=== PATIENT | female | born 1965 | race Caucasian/White ===

== ENCOUNTER 2018-10-12 04:16 | Inpatient (IN) ==
--- NOTE | 2018-10-05 09:46 | EKG Report ---
Test Performed on : 10/05/2018 09:31:10 AM Test Reason : PAT Blood Pressure : / mmHG Vent. Rate : 091 BPM Atrial Rate : 091 BPM P-R Int : 188 ms QRS Dur : 088 ms QT Int : 400 ms P-R-T Axes : 066 080 072 degrees QTc Int : 492 ms Normal sinus rhythm. Prolonged QT Abnormal ECG When compared with ECG of 22-MAR-2013 09:17, No significant change was found Confirmed by Luisana Cheney MD ([id number]) on 10/06/2018 12:59:48 PM
[2018-10-05 10:07] LABS: HEMATOCRIT 39.3 % (37.0-47.0); HEMOGLOBIN 13.6 g/dL (12.0-16.0); MCH 30.5 PG (27-31); MCHC 34.6 g/dL (33-37); MCV 88.1 FL (81-99); RBC 4.46 XMIL (4.2-5.4); RDW 13.1 % (11.5-14.5); WBC 5.02 X1000 (4.8-10.8)
[2018-10-05 11:02] LABS: AGAP 11; BUN 11 mg/dL (8-22); CALCIUM 9.5 mg/dL (8.8-10.2); CHLORIDE 104 mmol/L (98-107); COSMO 290; CREATININE 0.7 mg/dL (0.5-0.9); ESTIMATED GFR > 60; GLUCOSE 233 mg/dL (70-104); SODIUM 142 mmol/L (136-145); TCO2 27 mmol/L (25-35)
[2018-10-12] MEDS ORDERED: KEFZOL 1 GM/D5W 2 GM/100 ML IVPB ONE (05:41)
[2018-10-12] MEDS ORDERED: LR 1,000 ML ONE (05:41)
[2018-10-12] MEDS ORDERED: HURRICAINE SPRAY (DOSE) ONE (06:04)
[2018-10-12] MEDS ORDERED: STERILE WATER INJ. ONE ×2 (06:25→08:12)
[2018-10-12] MEDS ORDERED: QUELICIN (DOSE) ONE (06:25)
[2018-10-12] MEDS ORDERED: NORCURON ONE ×2 (06:25→08:12)
[2018-10-12] MEDS ORDERED: ROBINUL ONE (06:25)
[2018-10-12] MEDS ORDERED: XYLOCAINE-MPF 2% ONE (06:25)
[2018-10-12] MEDS ORDERED: SODIUM CHLORIDE 0.9% 20 ML ONE (06:25)
[2018-10-12] MEDS ORDERED: NEO-SYNEPHRINE ONE ×2 (06:25→10:52)
[2018-10-12] MEDS ORDERED: DIPRIVAN 1% ONE (06:26)
[2018-10-12] MEDS ORDERED: FENTANYL ONE (06:26)
[2018-10-12] MEDS ORDERED: NS 1,000 ML ONE ×3 (06:35→12:54)
[2018-10-12] MEDS ORDERED: KEFZOL ONE (06:35)
[2018-10-12] MEDS ORDERED: HEPARIN ONE (06:35)
[2018-10-12] MEDS ORDERED: PEPCID ONE (06:42)
[2018-10-12] MEDS ORDERED: TRANSDERM-SCOP ONE (06:42)
[2018-10-12] MEDS ORDERED: REGLAN ONE (06:42)
[2018-10-12] MEDS ORDERED: NITROGLYCERIN 50 MG/D5W 0 MG/0 ML IV.SOLN ONE (06:46)
[2018-10-12] MEDS ORDERED: VERSED ONE (06:48)
[2018-10-12] MEDS ORDERED: DECADRON ONE (07:44)
[2018-10-12] MEDS ORDERED: ZOFRAN ONE (07:44)
[2018-10-12 07:55] LABS: URINE SOURCE CATH
[2018-10-12 08:03] LABS: BILIRUBIN URINE NEGATIVE (NEGATIVE); BLOOD URINE NEGATIVE (NEGATIVE); COLOR YELLOW; GLUCOSE URINE 100 mg/dL (NEGATIVE); KETONE URINE NEGATIVE (NEGATIVE); LEUKOCYTES URINE NEGATIVE (NEGATIVE); NITRITE URINE NEGATIVE (NEGATIVE); PROTEIN URINE NEGATIVE (NEGATIVE); SP GRAVITY URINE 1.017; TURBIDITY URINE CLEAR (CLEAR); UR EPITHELIAL CELLS <10 /HPF (<10); URINE BACTERIA NEGATIVE /HPF; URINE RBC <10 /HPF (<10); URINE WBC <10 /HPF (<10); UROBILINOGEN URINE NORMAL (NORMAL)
[2018-10-12] MEDS ORDERED: NEOSTIGMINE ONE (08:03)
[2018-10-12] MEDS ORDERED: DILAUDID ONE (08:04)
[2018-10-12] MEDS ORDERED: SODIUM CHLORIDE 0.9% 10 ML ONE (08:05)
[2018-10-12] MEDS ORDERED: PHENERGAN ONE (08:14)
[2018-10-12] MEDS ORDERED: HEPARIN (DOSE) ONE (08:44)
[2018-10-12] MEDS ORDERED: OFIRMEV 1000 MG/ISOTONIC SOLN 1,000 MG/100 ML BOTTLE ONE (08:54)
[2018-10-12 12:52] LABS: HEMATOCRIT 21.5 % (37.0-47.0); HEMOGLOBIN 7.1 g/dL (12.0-16.0); MCH 30.2 PG (27-31); MCV 91.5 FL (81-99); MPV 9.7 FL (7.4-10.4); RBC 2.35 XMIL (4.2-5.4); RDW 13.9 % (11.5-14.5); WBC 11.87 X1000 (4.8-10.8)
--- NOTE | 2018-10-12 13:05 | OPERATIVE NOTE ---
PROCEDURE DATE: 10/12/2018 PROCEDURE: Aortobifemoral bypass using a 16 x 8 mm Hemashield bifurcated graft. SURGEON: Kp Tena MD. VOUCHER EXAMINER: Davey Castro RN and MADINA Ortiz. PREOPERATIVE DIAGNOSIS: Aortic occlusion with bilateral hip claudication. POSTOPERATIVE DIAGNOSIS: Aortic occlusion with bilateral hip claudication. DESCRIPTION OF PROCEDURE: After satisfactory general endotracheal anesthesia was achieved, the abdomen and groins were prepped and draped in a sterile fashion. We began in the left groin, and made a vertical incision, and dissected down to the subcutaneous tissue until we identified the common femoral artery as it came underneath the inguinal ligament. We surrounded it with an umbilical tape. The branches were identified and surrounded with vessel loops. An antibiotic sponge was placed in the left groin. We then did exactly the same procedure on the right groin identifying the common femoral artery as it came out from the inguinal ligament surrounding the branches with vessel loops in the common femoral with an umbilical tape. An antibiotic sponge was placed there as well. We then made a midline incision and carried our incision through the subcutaneous tissue. We achieved satisfactory hemostasis in the small veins inside the subcutaneous fat. We entered the abdominal cavity above the mesh which was noted to be just above the umbilicus. We then carefully dissected through the mesh, and then continued our fascial incision caudad. We took the adhesions from the back of the abdominal wall where the omentum was stuck up to the mesh. We divided those until the omentum was free. We then reflected the small bowel to the right, identified the retroperitoneum, and then opened the retroperitoneum using the electrocautery. Inferior mesenteric vein was ligated and divided. We then exposed the aorta below the renals in a spot where there was a palpable pulse. We then made a subcutaneous retroperitoneal tunnel along the course of the right iliac into the right groin passing an umbilical tape, and then we did the same thing on the left side using a long Shauna clamp passed from the groin up through the retroperitoneum. We stayed close to the vessel in order to be certain we stay behind the ureters. After those were placed, we then gave the patient 9000 units of heparin. We did have an umbilical tape around the aorta. We then placed a side-biting clamp on the aorta and passed it cephalad. We then used a TA 30 vascular staple to staple off the distal aorta. We then transected the aorta. The clot was noted within the aorta, and we removed it until upper aortic cuff was clear of clot. We had obtained a 16 x 8 bifurcated Hemashield collagen impregnated graft. We then used a 3-0 Prolene stitch to sew it to the aorta. Upon completion, we opened the aortic clamp and we did not really have flow so I assumed there was still some clot at the clamp level so we actually made a graftotomy. I passed a long Shauna into the aorta to remove some more of the clot, and evacuated until we did get vigorous flow. We then closed the graftotomy with a 3-0 Prolene stitch. The cuff we had made was used to place over that suture line. We then opened the clamp again. We did have flow down both limbs. It was vigorous, and so we then suctioned out the limbs with the graft suction cannula. We then passed the limbs down to the groins in the retroperitoneum using the previously placed path that we had already made. We then began on the right groin. We clamped off the common femoral, occluded flow in the branch vessels, and made a vertical incision in the common femoral down to the superficial femoral. We then cut the graft to match the arteriotomy and constructed this anastomosis with a 5- 0 Prolene stitch. As we neared completion, we back bled the branch vessels. There was still flow in the common femoral, and then we flushed the right limb of the graft and it was good. We then finished the anastomosis. We then clamped off the left limb and opened the graft, and allowed flow down the right side. We then turned our attention to the left-side. We did a similar anastomosis on the left side. As we neared completion, we opened and flushed the graft. We did not get adequate flow. We then began to try and solve the problem of our left limb was not adequate flow. It became evident that there was just too much redundancy in the left limb so I had to straighten out the left limb. Once we did that and took out some of the redundancy, we had a much better pulse in the left groin. In fact, I had to redo the femoral anastomosis shortening the graft by about 3 cm. This straightened the graft out enough that there was no redundancy then, and we then had good pulsatile flow. We re-did the distal anastomosis in the left femoral where we had made a graftotomy in that limb. We closed it as well with a 5-0 Prolene stitch, and flow was established. A good pulse was noted within the femorals. Both anastomoses were hemostatic. We then irrigated out both groins with Kefzol-impregnated saline. We proceeded to close both groins with 2 layers of 2-0 Polysorb. We then turned our attention to the abdomen once again. We closed the retroperitoneum with a 3-0 Polysorb running. The graft was well covered with the retroperitoneal fat where the bowel was then replaced into the abdominal cavity. It had been placed in a bowel bag during the abdominal portion of the procedure. We returned it to the abdominal cavity. We then proceeded to close the anterior peritoneum with a 2-0 chromic. We closed the anterior fascia with a running #2 Prolene, and irrigated out the subcutaneous tissue. We then closed the abdominal wall with elaine and both groins with elaine as well. Sterile dressings were applied. She tolerated it well. 3200 mL of blood loss. Received 4 units of blood, and was sent to the recovery room in stable condition. cc: Kp Tena MD
[2018-10-12] MEDS ORDERED: NS 1,000 ML IV SCH (14:01)
[2018-10-12 14:23] LABS: AGAP 15; BUN 11 mg/dL (8-22); CALCIUM 7.7 mg/dL (8.8-10.2); CHLORIDE 105 mmol/L (98-107); COSMO 289; CREATININE 0.7 mg/dL (0.5-0.9); ESTIMATED GFR > 60; GLUCOSE 390 mg/dL (70-104); POTASSIUM 4.5 mmol/L (3.5-5.1); SODIUM 137 mmol/L (136-145); TCO2 17 mmol/L (25-35)
[2018-10-12] MEDS: KEFZOL 1 GM in NS 50 ML IV SCH ×2 (14:24→15:02)
[2018-10-12] MEDS ORDERED: NS 250 ML IV PRN (14:34)
[2018-10-12] MEDS: DILAUDID IV PRN ×4 (14:59→22:03)
[2018-10-12] MEDS: ZOFRAN IV PRN ×2 (15:00→22:08)
--- NOTE | 2018-10-12 18:26 | GENERAL SURGERY PROGRESS NOTE ---
DATE: 10/12/2018 SUBJECTIVE: It is 6:10 in the afternoon. Ms. Bay is awake and alert. OBJECTIVE: Her heart rate is 135, blood pressure is 147/85. She has clear breath sounds bilaterally. Abdominal bandage is dry. She has a little oozing from her left groin. Her periphery is cool. ASSESSMENT/PLAN: She is making urine satisfactorily. She has received 5 units of blood. We will give her an additional unit tonight. Her glucose is about in the mid 200s. We will put her on a sliding scale. We will recheck her labs in the morning. I have talked with her family. cc: Kp Tena MD
[2018-10-12 18:28] LABS: ALLEN TEST YES; BE -13.8 mmoll (-3.0-3.0); BLOOD TYPE ARTERIAL; O2(CT) 20.5 mL/dL (15.0-23.0); O2HB 93.5 % (95.0-99.0); PCO2(98.6) 44 mmHg (35-45); PO2(98.6) 76 mmHg (60-100); SAMPLE BLOOD; SAO2 96.9 % (95.0-100.0); THB 15.6 g/dL (11.5-17.4)
[2018-10-12 18:30] LABS: MODALITY CANNULA; pH(98.6) 7.14 (7.35-7.45)
[2018-10-12] MEDS: SODIUM BICARBONATE 8.4% 100 MEQ in D5W 1,000 ML IV SCH (19:43)
[2018-10-12] MEDS ORDERED: HUMULIN R SUBQ SCH ×2 (21:00)
[2018-10-12] MEDS ORDERED: PERIDEX MT SCH (21:00)
[2018-10-12 22:27] LABS: ALLEN TEST YES; BE -9.4 mmoll (-3.0-3.0); BLOOD TYPE ARTERIAL; HCO3-(ACT) 17.5 mmoll (20.0-26.0); METHB 1.2 % (0.0-1.5); O2(CT) 21.7 mL/dL (15.0-23.0); O2HB 95.6 % (95.0-99.0); PCO2(98.6) 50 mmHg (35-45); PO2(98.6) 112 mmHg (60-100); SAMPLE BLOOD; SAO2 99.4 % (95.0-100.0); THB 16.1 g/dL (11.5-17.4)
[2018-10-12 22:28] LABS: MODALITY VENTIMASK
[2018-10-12 22:31] LABS: pH(98.6) 7.19 (7.35-7.45)
[2018-10-13 00:13] LABS: HEMOGLOBIN 15.6 g/dL (12.0-16.0); MCH 30.9 PG (27-31); MCHC 34.7 g/dL (33-37); MCV 89.1 FL (81-99); MPV 10.6 FL (7.4-10.4); RBC 5.05 XMIL (4.2-5.4); RDW 15.1 % (11.5-14.5); WBC 25.07 X1000 (4.8-10.8)
[2018-10-13 00:41] LABS: POTASSIUM 6.5 mmol/L (3.5-5.1)
[2018-10-13] MEDS: KEFZOL 1 GM in NS 50 ML IV SCH (00:42)
[2018-10-13 00:43] LABS: CALCIUM 7.2 mg/dL (8.8-10.2); CREATININE 1.2 mg/dL (0.5-0.9)
[2018-10-13 00:58] LABS: CK INDEX 0.7 (0.0-2.5); CK-MB 40.71 ng/mL (0.0-5.0)
[2018-10-13] MEDS ORDERED: LANTUS INSULIN SUBQ ONE (02:12)
[2018-10-13] MEDS ORDERED: HUMALOG SUBQ ONE (02:14)
[2018-10-13] MEDS: SODIUM BICARBONATE 8.4% 100 MEQ in D5W 1,000 ML IV SCH (02:19)
[2018-10-13 02:43] LABS: BASO# 0.02 X1000 (0.0-0.2); BASO% 0.1 % (0.0-0.8); HEMATOCRIT 44.2 % (37.0-47.0); HEMOGLOBIN 15.4 g/dL (12.0-16.0); IMM GRAN% 0.4 % (0.0-0.5); LYMPH# 1.98 X1000 (1.2-3.4); LYMPH% 7.9 % (20.5-51.1); MCH 30.8 PG (27-31); MCHC 34.8 g/dL (33-37); MCV 88.4 FL (81-99); MONO# 2.55 X1000 (0.11-0.59); MONO% 10.2 % (1.7-9.3); MPV 10.2 FL (7.4-10.4); NEUT# 20.43 X1000 (1.4-6.5); NEUT% 81.4 % (42.2-75.2); PLT 89 X1000 (130-400); WBC 25.08 X1000 (4.8-10.8)
[2018-10-13 03:05] LABS: BANDS 2 % (0-1); LYMPHS 7 % (21-51); MONO 8 % (1-9); SEGS 83 % (42-75)
[2018-10-13 03:10] LABS: CREATININE 1.1 mg/dL (0.5-0.9)
[2018-10-13 03:11] LABS: ALLEN TEST YES; BE -6.7 mmoll (-3.0-3.0); BLOOD TYPE ARTERIAL; HCO3-(ACT) 19.6 mmoll (20.0-26.0); METHB 1.1 % (0.0-1.5); O2(CT) 21.4 mL/dL (15.0-23.0); PCO2(98.6) 49 mmHg (35-45); PO2(98.6) 102 mmHg (60-100); SAMPLE BLOOD; SAO2 99.2 % (95.0-100.0); THB 15.8 g/dL (11.5-17.4); pH(98.6) 7.24 (7.35-7.45)
[2018-10-13 03:12] LABS: MODALITY VENTIMASK
[2018-10-13 03:12] LABS: POTASSIUM 6.6 mmol/L (3.5-5.1)
[2018-10-13 03:13] LABS: CALCIUM 6.5 mg/dL (8.8-10.2)
[2018-10-13] MEDS ORDERED: HUMULIN R IV ONE (03:16)
[2018-10-13] MEDS ORDERED: CALCIUM GLUCONATE 1 GM in NS 50 ML IV ONE ×2 (03:17→07:42)
[2018-10-13] MEDS ORDERED: D50W SYRINGE IV ONE (03:17)
[2018-10-13] MEDS ORDERED: LASIX IV ONE (03:31)
[2018-10-13] MEDS ORDERED: DUONEB (A & A) INH ONE (03:31)
[2018-10-13] MEDS ORDERED: DUONEB (A & A) INH PRN (03:31)
[2018-10-13] MEDS ORDERED: SODIUM BICARBONATE 8.4% 150 MEQ in STERILE WATER INJ. 1,000 ML IV SCH ×2 (04:15→10:30)
[2018-10-13] MEDS ORDERED: VANCOMYCIN IV PER PHARMACY MISC SCH (04:30)
[2018-10-13] MEDS: HUMULIN R SUBQ SCH ×5 (04:51→20:24)
[2018-10-13] MEDS: MERREM 1 GM in NS 50 ML IV SCH ×3 (04:51→22:57)
[2018-10-13] MEDS ORDERED: VANCOMYCIN 2,250 MG in NS 500 ML IV ONE (05:00)
[2018-10-13 06:24] LABS: BASO# 0.01 X1000 (0.0-0.2); BASO% 0.1 % (0.0-0.8); HEMATOCRIT 41.2 % (37.0-47.0); HEMOGLOBIN 14.5 g/dL (12.0-16.0); IMM GRAN# 0.04 X1000 (0.0-0.04); IMM GRAN% 0.3 % (0.0-0.5); LYMPH# 1.47 X1000 (1.2-3.4); LYMPH% 9.8 % (20.5-51.1); MCH 30.6 PG (27-31); MCHC 35.2 g/dL (33-37); MCV 86.9 FL (81-99); MONO# 1.29 X1000 (0.11-0.59); MONO% 8.6 % (1.7-9.3); NEUT% 81.2 % (42.2-75.2); PLT 66 X1000 (130-400); RBC 4.74 XMIL (4.2-5.4); RDW 14.7 % (11.5-14.5); WBC 15.01 X1000 (4.8-10.8)
--- NOTE | 2018-10-13 06:29 | Diag Imaging Result Doc PS360 ---
CT ABD/PELVIS W/IV CONT ONLY - 10/13/2018 INDICATION: s/p abdominal sx COMPARISON: None FINDINGS: There is significant scattered atelectasis in the lower lobes bilaterally. Heart size is normal with no pericardial effusion. There is extremely severe diffuse fatty change of the liver. There are multifocal, small splenic infarctions. Spleen size is normal. There are cholecystectomy clips. No biliary dilation. The pancreas, adrenals, and kidneys are normal. There is an aortobifemoral bypass graft. The craig aorta is completely occluded. The left limb of the graft is completely occluded. The right graft demonstrates severe stenosis proximally, and critical stenosis distally. There is a laparotomy incision with skin elaine. There is a small amount of soft tissue gas and some minimal peritoneal gas. There is also some gas in the inguinal regions bilaterally. Sullivan catheter in the urinary bladder. Small amount of free fluid. No bowel obstruction or evidence of inflammation. Uterus is absent. Rectum is normal. Bones are intact. IMPRESSION: 1. Apparent recent aorto-bifemoral bypass graft placement. The craig abdominal aorta is completely occluded. However the graft is also either side severely stenotic or occluded. 2. Extremely severe diffuse fatty change of the liver. 3. Multifocal splenic infarctions. 4. Scattered atelectasis in the lung bases. This exam was performed using automated exposure control, adjustment of mA or kV according to patient size, and/or use of iterative reconstruction technique Electronically signed by Renato Valenzuela 10/13/2018 6:26 AM
--- NOTE | 2018-10-13 06:31 | Diag Imaging Result Doc PS360 ---
CT LUMBAR SPINE W/CONTRAST - 10/13/2018 INDICATION: neurovasular problem with left leg COMPARISON: None FINDINGS: There is moderate lumbar spondylosis. No fracture or subluxation. No central canal stenosis. IMPRESSION: No significant abnormality. This exam was performed using automated exposure control, adjustment of mA or kV according to patient size, and/or use of iterative reconstruction technique Electronically signed by Renato Valenzuela 10/13/2018 6:28 AM
[2018-10-13 06:53] LABS: ESTIMATED GFR > 60
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
[2018-10-13 07:02] LABS: AGAP 13; BUN 18 mg/dL (8-22); CHLORIDE 103 mmol/L (98-107); COSMO 296; CREATININE 0.9 mg/dL (0.5-0.9); GLUCOSE 370 mg/dL (70-104); POTASSIUM 4.3 mmol/L (3.5-5.1); SODIUM 140 mmol/L (136-145); TCO2 24 mmol/L (25-35)
--- NOTE | 2018-10-13 07:07 | Diag Imaging Result Doc PS360 ---
EXAM: CHEST-1 VIEW 10/13/2018 HISTORY: hypoxia TECHNIQUE: AP portable at 0256 COMMENT: The inspiration is much less optimal than on 03/22/2013. There is some apparent platelike atelectasis in both lung bases. IMPRESSION: Poor inspiration. Bibasilar atelectasis. Electronically signed by Reji Meier 10/13/2018 7:04 AM
[2018-10-13] MEDS: DILAUDID IV PRN ×3 (07:48→20:25)
--- NOTE | 2018-10-13 08:41 | EKG Report ---
Test Performed on : 10/13/2018 08:32:18 AM Test Reason : tachycardia Blood Pressure : / mmHG Vent. Rate : 127 BPM Atrial Rate : 129 BPM P-R Int : 000 ms QRS Dur : 082 ms QT Int : 410 ms P-R-T Axes : 000 040 071 degrees QTc Int : 595 ms Accelerated Junctional rhythm. Abnormal ECG When compared with ECG of 13-OCT-2018 02:24, (Unconfirmed) Junctional rhythm. has replaced Sinus rhythm. Confirmed by Luisana Cheney MD ([id number]) on 10/17/2018 8:31:35 AM
[2018-10-13] MEDS ORDERED: LANTUS INSULIN SUBQ SCH (09:00)
[2018-10-13 09:07] LABS: AGAP 16; ALB/GLOB RATIO 1.5; ALBUMIN 3.2 g/dL (3.5-5.0); ALKALINE PHOSPHATASE 51 U/L (32-104); BUN 17 mg/dL (8-22); CHLORIDE 102 mmol/L (98-107); COSMO 296; CREATININE 0.9 mg/dL (0.5-0.9); GLUCOSE 309 mg/dL (70-104); GOT 136 U/L (10-30); GPT 62 U/L (10-36); POTASSIUM 4.4 mmol/L (3.5-5.1); SODIUM 142 mmol/L (136-145); TCO2 24 mmol/L (25-35); TOTAL BILIRUBIN 0.78 mg/dL (0.20-1.00); TOTAL PROTEIN 5.3 g/dL (6.3-8.3)
[2018-10-13 09:12] LABS: URINE SOURCE CATH
[2018-10-13] MEDS ORDERED: XYLOCAINE-MPF 2% ONE (09:12)
[2018-10-13] MEDS ORDERED: QUELICIN (DOSE) ONE (09:12)
[2018-10-13 09:18] LABS: BILIRUBIN URINE NEGATIVE (NEGATIVE); BLOOD URINE LARGE (NEGATIVE); COLOR ORANGE; GLUCOSE URINE 500 mg/dL (NEGATIVE); KETONE URINE TRACE mg/dL (NEGATIVE); LEUKOCYTES URINE NEGATIVE (NEGATIVE); NITRITE URINE NEGATIVE (NEGATIVE); PROTEIN URINE 50 mg/dL (NEGATIVE); TURBIDITY URINE CLEAR (CLEAR); UR EPITHELIAL CELLS <10 /HPF (<10); URINE BACTERIA NEGATIVE /HPF; URINE RBC <10 /HPF (<10); URINE WBC <10 /HPF (<10); UROBILINOGEN URINE NORMAL (NORMAL)
[2018-10-13 09:21] LABS: ALLEN TEST NO; BE 3.4 mmoll (-3.0-3.0); BLOOD TYPE ARTERIAL; HCO3-(ACT) 27.5 mmoll (20.0-26.0); METHB 1.2 % (0.0-1.5); O2(CT) 19.6 mL/dL (15.0-23.0); O2HB 95.3 % (95.0-99.0); PCO2(98.6) 50 mmHg (35-45); PO2(98.6) 83 mmHg (60-100); SAMPLE BLOOD; SAO2 98.1 % (95.0-100.0); THB 14.6 g/dL (11.5-17.4); pH(98.6) 7.38 (7.35-7.45)
[2018-10-13] MEDS ORDERED: HUMULIN R 100 UNIT in NS 100 ML IV SCH (09:30)
[2018-10-13 09:39] LABS: SP GRAVITY URINE 1.005
[2018-10-13] MEDS ORDERED: MISC. PHARMACY COMMUNICATION SCH (09:45)
[2018-10-13] MEDS ORDERED: NS 1,000 ML ONE ×2 (09:49→09:51)
[2018-10-13] MEDS ORDERED: PAPAVERINE ONE (09:49)
[2018-10-13] MEDS ORDERED: KEFZOL ONE (09:49)
[2018-10-13] MEDS ORDERED: HEPARIN ONE ×2 (09:49→09:51)
[2018-10-13] MEDS ORDERED: MARCAINE 0.25% PF/EPI 1:200,000 ONE (09:49)
[2018-10-13 10:00] LABS: INR 1.14; PROTIME 14.8 Seconds (11.0-16.0)
[2018-10-13] MEDS ORDERED: ALBUMIN 25% 50 GM in NS 800 ML IV ONE (10:00)
[2018-10-13 10:01] LABS: PTT 30.2 Seconds (22.3-41.8)
[2018-10-13] MEDS ORDERED: DIPRIVAN 1% ONE (10:05)
[2018-10-13 10:41] LABS: MODALITY VENTIMASK
[2018-10-13] MEDS ORDERED: NEO-SYNEPHRINE ONE (10:45)
[2018-10-13 11:28] LABS: CK INDEX 0.7 (0.0-2.5); CK-MB 55.07 ng/mL (0.0-5.0)
--- NOTE | 2018-10-13 11:33 | EKG Report ---
Test Performed on : 10/12/2018 11:05:33 PM Test Reason : ELEVATED HR Blood Pressure : / mmHG Vent. Rate : 144 BPM Atrial Rate : 144 BPM P-R Int : 128 ms QRS Dur : 086 ms QT Int : 326 ms P-R-T Axes : 000 035 057 degrees QTc Int : 504 ms Sinus tachycardia. Low voltage QRS Cannot rule out Anterior infarct , age undetermined Abnormal ECG When compared with ECG of 05-OCT-2018 09:31, Vent. rate has increased BY 53 BPM Confirmed by Lusiana Cheney MD ([id number]) on 10/17/2018 8:31:11 AM
[2018-10-13] MEDS ORDERED: NORCURON ONE (11:36)
[2018-10-13] MEDS ORDERED: HEPARIN (DOSE) ONE (11:36)
[2018-10-13] MEDS ORDERED: ROBINUL ONE (11:48)
[2018-10-13] MEDS ORDERED: NEOSTIGMINE ONE (11:49)
[2018-10-13] MEDS: ZOFRAN IV PRN (13:15)
--- NOTE | 2018-10-13 13:29 | Diag Imaging Result Doc PS360 ---
EXAM: CHEST-PORTABLE 10/13/2018 HISTORY: central line placement TECHNIQUE: AP portable at 1321 COMMENT: There is a right subclavian central venous catheter with its tip just within the right atrium. There are some atelectatic changes in the lung bases which were also present at the time the previous study of this date at 0256. There is no evidence of pneumothorax or pleural fluid collection. IMPRESSION: Bibasilar atelectasis. Electronically signed by Reji Meier 10/13/2018 1:27 PM
--- NOTE | 2018-10-13 13:47 | HEMO/ONC CONSULTATION ---
DATE: 10/13/2018 REASON FOR CONSULTATION: Thrombocytopenia. HISTORY OF PRESENT ILLNESS: The patient was admitted on October 12 for an aortobifemoral bypass related to aortic occlusion with bilateral hip claudication, by Dr. Kp Tena. Both her right and left extremities were reperfused successfully. The patient was placed in the ICU with an abdominal binder and has been progressing well. She had 6 units of blood during surgery. Medical management was consulted for acidosis, hyperkalemia, and hyperglycemia. This morning, she was noted to have a decrease in platelets. PAST MEDICAL HISTORY: Diabetes mellitus type 2, chronic lumbar back pain, hyperlipidemia, and hypertension. PAST SURGICAL HISTORY: Bilateral tubal ligation, umbilical hernia repair, left rotator cuff surgery, laparoscopic cholecystectomy, vaginal hysterectomy, spinal disk surgery at the L4-L5 region. FAMILY HISTORY: Her mother had Parkinson's. SOCIAL HISTORY: She smokes 1 pack a day. No alcohol or illicit drugs. ALLERGIES: Clarithromycin. HOME MEDICATIONS: Mobic, amitriptyline, Lyrica, metformin, Januvia, Tradjenta, hydrochlorothiazide, glipizide, and simvastatin. REVIEW OF SYSTEMS: Pertinent positives are in the HPI. VITAL SIGNS: Temperature 99.1 degrees, pulse rate 129, respiratory rate 17, blood pressure 151/99, O2 saturation 98% on Venturi mask at 50% O2 flow rate. She appears to be in 0/10 pain. PHYSICAL EXAMINATION: This is a generally ill-appearing female in no acute distress. HEENT: Sclerae are anicteric. PERRLA. Conjunctivae pink. Oral mucosa is dry. Cardiovascular: Normal S1 and S2. No murmurs, gallops, or rubs. Heart rate and rhythm is tachycardic. Respiratory: Decreased bilaterally. No adventitious breath sounds. No signs of respiratory distress. Gastrointestinal: She has on an abdominal binder. LABORATORY DATA: WBCs 25.08, hemoglobin 15.4, hematocrit 44.2, platelet count 89,000, ANC 20.43. Creatinine 0.9, calcium 7.0. Alkaline phosphatase 51. LDH 452. ProBNP 862. ASSESSMENT: 1. Thrombocytopenia. 2. Probable sepsis. 3. Lactic acidosis. PLAN: We are going to add a few laboratory evaluations. Dr. Pugh will review her labs. At this time, it is probable that her thrombocytopenia is due to dilution and the amount of blood she received during surgery. We will continue to monitor very closely. Dictated by SLOAN Gannon for Jose Pugh MD Patient seen and examined. As above. Thrombocytopenia - check lab evaluation. Suspect dilutional versus sepsis. Will follow with you. Jose Pugh MD cc: MD Telma Amaya MD [facility] HOSPITALMike
[2018-10-13] MEDS ORDERED: 1/2 NS 1,000 ML IV SCH (14:00)
[2018-10-13] MEDS: SODIUM CHLORIDE 0.9% INJ SCH (14:57)
[2018-10-13] MEDS: PROTONIX IV SCH (14:57)
[2018-10-13 15:08] LABS: ALLEN TEST NO; BE 3.1 mmoll (-3.0-3.0); BLOOD TYPE ARTERIAL; HCO3-(ACT) 27.3 mmoll (20.0-26.0); METHB 1.2 % (0.0-1.5); O2(CT) 15.8 mL/dL (15.0-23.0); O2HB 93.6 % (95.0-99.0); PCO2(98.6) 46 mmHg (35-45); PO2(98.6) 68 mmHg (60-100); SAMPLE BLOOD; SAO2 97.1 % (95.0-100.0)
[2018-10-13 15:09] LABS: MODALITY VENTIMASK
--- NOTE | 2018-10-13 15:14 | EKG Report ---
Test Performed on : 10/13/2018 02:24:24 AM Test Reason : ORDERED Blood Pressure : / mmHG Vent. Rate : 134 BPM Atrial Rate : 134 BPM P-R Int : 136 ms QRS Dur : 082 ms QT Int : 346 ms P-R-T Axes : 000 062 039 degrees QTc Int : 516 ms Sinus tachycardia. Low voltage QRS Cannot rule out Anterior infarct (cited on or before 12-OCT-2018) Abnormal ECG When compared with ECG of 12-OCT-2018 23:05, (Unconfirmed) No significant change was found Confirmed by Luisana Cheney MD ([id number]) on 10/17/2018 8:31:13 AM
[2018-10-13 15:16] LABS: RETIC% 1.98 % (0.8-2.1); RETIC-HE 33.8 PG (28.2-36.6)
[2018-10-13 15:28] LABS: BASO# 0.02 X1000 (0.0-0.2); BASO% 0.1 % (0.0-0.8); HEMATOCRIT 35.4 % (37.0-47.0); HEMOGLOBIN 12.4 g/dL (12.0-16.0); IMM GRAN# 0.05 X1000 (0.0-0.04); IMM GRAN% 0.3 % (0.0-0.5); LYMPH# 1.76 X1000 (1.2-3.4); LYMPH% 10.9 % (20.5-51.1); MCH 30.9 PG (27-31); MCV 88.3 FL (81-99); MONO# 1.48 X1000 (0.11-0.59); MONO% 9.2 % (1.7-9.3); NEUT# 12.86 X1000 (1.4-6.5); NEUT% 79.5 % (42.2-75.2); PLT 60 X1000 (130-400); RBC 4.01 XMIL (4.2-5.4); RDW 14.6 % (11.5-14.5); WBC 16.17 X1000 (4.8-10.8)
[2018-10-13] MEDS ORDERED: LABETALOL IV PRN (15:41)
[2018-10-13] MEDS: XOPENEX NEB INH SCH ×3 (15:44→21:11)
--- NOTE | 2018-10-13 15:57 | PROGRESS NOTE ---
DATE: 10/13/2018 SUBJECTIVE: The patient is resting comfortably in bed. She does complain of generalized pain. She is currently on a Ventimask. OBJECTIVE: Vital Signs: T-max 98.8 degrees, blood pressure 159/70, heart rate 119, respirations 19, O2 saturation 99% on 50% Ventimask, output 5.7 L. General: This is a morbidly obese female, lying in bed in no acute distress. Head: Normocephalic, atraumatic. Heart: S1, S2. Normal. Tachycardic. Lungs: Equal air entry bilaterally. No wheezing. No rales. No rhonchi. Abdomen: Positive bowel sounds. Soft, nontender, nondistended. Extremities: The arms and legs are cold to touch. No edema noted. Neurologic: The patient is alert and oriented x3. LABS: White blood cell count 16, hemoglobin 12, hematocrit 35, platelets 60. ABG with pH 7.4, pCO2 46, PO2 68, bicarbonate 27. Sodium 142, potassium 4.4, chloride 102, CO2 24. BUN 17, creatinine 0.9, glucose 309, calcium 7. AST 136, ALT 62, alkaline phosphatase 51. CK 8414. X-RAYS: Chest x-ray shows bibasilar atelectasis. ASSESSMENT AND PLAN: 1. Acute hypoxemic respiratory failure. Continue with supplemental oxygen, bronchodilator therapy and antibiotic therapy. 2. Sepsis. Blood and urine cultures have been obtained. The patient is currently on broad- spectrum antibiotic therapy and fluids. We will monitor the patient's course closely. 3. Lactic acidosis. Resolved. The patient's acid-base status has improved since being placed on the bicarbonate drip. 4. Rhabdomyolysis. We will continue with intravenous fluid hydration. We will monitor the patient's urine output and electrolytes closely. 5. Hyperkalemia. Resolved. 6. Status post aortobifemoral bypass. Management as per the general surgeon. 7. Severe anemia. The patient received several units of packed red blood cells. Will continue to monitor the hemoglobin and hematocrit closely. 8. Hypocalcemia. Will replace the patient's calcium. 9. Thrombocytopenia. We will consult with Hematology. 10. Uncontrolled diabetes mellitus type 2. We will continue to monitor the blood glucose every 4 hours and continue with sliding scale insulin every 4 hours. We will check a hemoglobin A1c. 11. Morbid obesity. Aware. 12. Hypertension. We will start the patient on prn labetalol. cc: Telma Corona MD MTDD
[2018-10-13 16:05] LABS: AGAP 12; BUN 14 mg/dL (8-22); CHLORIDE 102 mmol/L (98-107); COSMO 290; CREATININE 0.6 mg/dL (0.5-0.9); ESTIMATED GFR > 60; GLUCOSE 239 mg/dL (70-104); POTASSIUM 4.1 mmol/L (3.5-5.1); SODIUM 141 mmol/L (136-145); TCO2 27 mmol/L (25-35)
[2018-10-13 16:06] LABS: CALCIUM 6.9 mg/dL (8.8-10.2)
[2018-10-13] MEDS ORDERED: CALCIUM GLUCONATE 2 GM in NS 100 ML IV ONE (16:07)
--- NOTE | 2018-10-13 16:24 | OPERATIVE NOTE ---
PROCEDURE DATE: 10/13/2018 PROCEDURE PERFORMED: 1. Open thrombectomy left limb aortobifemoral graft. 2. Thrombectomy of both femoral arteries. 3. Aortogram. SURGEON: Kp Tena MD. WORKING FOREMAN: Dr. Winn who assisted in exposure and the thrombectomies on both sides. PREOPERATIVE DIAGNOSIS: Thrombosis left limb of aortobifemoral graft. POSTOPERATIVE DIAGNOSIS: 1. Thrombosis left limb of aortobifemoral graft. 2. Thrombosis of both common femoral arteries. INDICATIONS: This is a 53-year-old who is a day after aortobifemoral graft placement. She had findings consistent with thrombosis and a CT scan during the night showed left limb graft thrombosis. DESCRIPTION OF PROCEDURE: After informed consent, we took her to the operating room. Satisfactory general endotracheal anesthesia was achieved. The anesthesiologist did place a subclavian IV and a new arterial line for pressure monitoring. The abdomen and both legs were prepped and draped in a sterile fashion. We first opened the left groin, removed all elaine, and then cut the subcutaneous stitches, exposing the graft. Heparin [id number] units were given. We opened the previously made graftotomy and there was clot present. So first we removed all the platelet debris inside the graft. We then passed a 4 Hudson down the profunda and extracted clot and got back bleeding. We then passed it down the superficial femoral and again extracted clot and then got back bleeding. We did that on both arteries until we got no further debris. We had surrounded each vessel with a vessel loop for control. We then passed a 5 Hudson up the left limb and we were able to traverse the aorta without any difficulty. We passed it up easily and did not meet any resistance and extracted clot until we got vigorous antegrade flow. As I said, it went quite easily and we did not meet any resistance. So then we had good antegrade flow and so I decided to try to shoot a arteriogram. I wanted to advance a long 7-Sinhala sheath up the aorta and look at the aorta, so I passed the Glidewire up and apparently the Glidewire traversed the anastomosis or [address] where we had made a graftotomy and may have gone through the aortograft. We passed the long 7-Sinhala sheath and we again did not get flow, so the sheath apparently went through also. There was some extravasation noted on retrograde injection through this sheath. So, we just aborted that and pulled it out and decided to open the right limb and address the proximal aorta through the right side. So, we removed the long sheath and closed the graftotomy with a running 5-0 Prolene stitch and again we maintained good pulse in the left femoral graft. We opened the right groin and exposed the graft on the right side. This time we just stuck the graft with a needle and a 7-Sinhala sheath. We shot a retrograde arteriogram and we had flow up to the graft and over into the left limb, but really did not get flow proximal to visualize the anastomosis. So I passed the guidewire up the aorta from the right and it went satisfactorily into the [place] aorta. We passed the long 7-Sinhala sheath and tried to shoot an aortogram through it but we did get good enough detail, so I decided to switch to a pigtail. We then shot a run, typical aortogram run through a pigtail and this gave us adequate detail to show that the lumen was adequate. I did not feel that any manipulation of the aorta was mcintyre in view of the fresh anastomosis so I did not open the reliant balloon because I felt that the lumen was adequate. Again, the left limb was opened. The right limb was opened. There was absolutely no extravasation seen. So, we did not feel that we had to address that, plus her hemodynamics were stable. So, we removed the pigtail. I then decided to address the femoral arteries on the right as well. After removing the devices from the graft we clamped it off and then extended this hole in the graft caudad and then passed the 4 Hudson down the deep femoral and the superficial femoral. We did extract clot, platelet, and thrombus from both of them until we got very good back bleeding from both of them. We then closed the graftotomy and again flow was established. We then irrigated both wounds with Kefzol-impregnated saline. Closed the wounds in 2 layers of running 2-0 Polysorb. A couple of extra 3-0 interrupted Polysorb were placed and then skin was closed with elaine. Sterile dressings were applied. ESTIMATED BLOOD LOSS: Around 400 mL. CONDITION: She remained stable through the case and was sent to the intensive care unit in stable condition. cc: MD Telma Bustos MD
[2018-10-13] MEDS: 1/2 NS 1,000 ML IV SCH (16:31)
--- NOTE | 2018-10-13 19:08 | GENERAL SURGERY PROGRESS NOTE ---
DATE: 10/13/2018 TIME: 4:30 in the afternoon. SUBJECTIVE: Ms. Bay is better after her thrombectomy today. Currently her heart rate is 128, blood pressure 187/82. Her legs are obviously warmer. She can tell a difference. There is no evidence of bleeding. LABORATORIES: Her labs at 3 o'clock show a hemoglobin of 12.4, hematocrit 35.4, platelet count was 60,000. So it has dropped a little bit compared to this morning. Her D-dimer was 3.87, fibrinogen was 395, which was within normal limits. Sodium 141, potassium 4.1, chloride 102, carbon dioxide 27, BUN 14, creatinine 0.6. Sugars at 2:30. Hematocrit 18, CPK was 16,000. ASSESSMENT: Much improved after thrombectomy. I will start her on Eliquis by mouth to help prevent this from happening again, because I do not have a definite cause for the thrombosis. Her platelet count fall maybe heparin-induced. I guess we will see, but I will avoid the use of any heparin. Her poor perfusion is significantly improved. As a result, her lactate is improved. Her acidosis is improved as well and so I agree with removing her bicarb from her IV fluids. We will continue to follow along and play close attention to her leg perfusion. cc: MD Telma Bustos MD
[2018-10-13] MEDS: ELIQUIS PO SCH (20:30)
[2018-10-13 22:43] LABS: AGAP 10; ALBUMIN 3.5 g/dL (3.5-5.0); BUN 12 mg/dL (8-22); CALCIUM 7.2 mg/dL (8.8-10.2); CHLORIDE 104 mmol/L (98-107); CK TOTAL > 20000 U/L (24-173); COSMO 290; CREATININE 0.7 mg/dL (0.5-0.9); ESTIMATED GFR > 60; GLUCOSE 225 mg/dL (70-104); PHOSPHORUS 2.4 mg/dL (2.7-4.5); SODIUM 142 mmol/L (136-145); TCO2 28 mmol/L (25-35)
[2018-10-14] MEDS: HUMULIN R SUBQ SCH ×7 (01:21→23:31)
[2018-10-14] MEDS: 1/2 NS 1,000 ML IV SCH ×4 (01:22→23:31)
[2018-10-14] MEDS: DILAUDID IV PRN ×4 (02:28→21:53)
[2018-10-14] MEDS: XOPENEX NEB INH SCH ×4 (03:33→22:23)
[2018-10-14] MEDS: VANCOMYCIN 2,000 MG in NS 500 ML IV SCH (04:54)
[2018-10-14 04:55] LABS: ALLEN TEST YES; BE 3.7 mmoll (-3.0-3.0); BLOOD TYPE ARTERIAL; HCO3-(ACT) 27.7 mmoll (20.0-26.0); METHB 1.4 % (0.0-1.5); O2(CT) 14.2 mL/dL (15.0-23.0); O2HB 93.1 % (95.0-99.0); PCO2(98.6) 50 mmHg (35-45); PO2(98.6) 69 mmHg (60-100); SAMPLE BLOOD; SAO2 96.4 % (95.0-100.0); THB 10.8 g/dL (11.5-17.4); pH(98.6) 7.38 (7.35-7.45)
[2018-10-14 04:56] LABS: MODALITY VENTIMASK
[2018-10-14 05:58] LABS: HEMATOCRIT 48.8 % (37.0-47.0); HEMOGLOBIN 17.6 g/dL (12.0-16.0); IMM GRAN# 0.02 X1000 (0.0-0.04); IMM GRAN% 0.3 % (0.0-0.5); LYMPH# 0.62 X1000 (1.2-3.4); LYMPH% 9.9 % (20.5-51.1); MCH 31.3 PG (27-31); MCHC 36.1 g/dL (33-37); MCV 86.7 FL (81-99); MONO# 0.42 X1000 (0.11-0.59); MONO% 6.7 % (1.7-9.3); MPV 12.3 FL (7.4-10.4); NEUT# 5.22 X1000 (1.4-6.5); NEUT% 83.1 % (42.2-75.2); PLT 45 X1000 (130-400); RBC 5.63 XMIL (4.2-5.4); RDW 14.8 % (11.5-14.5); WBC 6.28 X1000 (4.8-10.8)
[2018-10-14] MEDS: MERREM 1 GM in NS 50 ML IV SCH ×3 (06:08→23:32)
[2018-10-14 06:15] LABS: HEMOGLOBIN A1C 6.5 % (4.8-6.0)
--- NOTE | 2018-10-14 06:46 | Diag Imaging Result Doc PS360 ---
CHEST-PORTABLE - 10/14/2018 INDICATION: dyspnea COMPARISON: 10/13/2018 FINDINGS: Stable right central line. Stable low lung volumes. Stable right hemidiaphragm elevation. Stable hazy bibasilar opacifications/infiltrates that are nonspecific. Heart size and pulmonary vascularity remain slightly enlarged. IMPRESSION: No change from prior. Electronically signed by Renato Valenzuela 10/14/2018 6:44 AM
--- NOTE | 2018-10-14 07:21 | EKG Report ---
Test Performed on : 10/14/2018 07:11:12 AM Test Reason : tachycardia Blood Pressure : / mmHG Vent. Rate : 123 BPM Atrial Rate : 123 BPM P-R Int : 162 ms QRS Dur : 090 ms QT Int : 310 ms P-R-T Axes : 055 068 068 degrees QTc Int : 443 ms Sinus tachycardia. Otherwise normal ECG When compared with ECG of 13-OCT-2018 08:32, (Unconfirmed) Sinus rhythm. has replaced Junctional rhythm. Confirmed by Luisana Cheney MD ([id number]) on 10/17/2018 8:32:30 AM
[2018-10-14] MEDS: ELIQUIS PO SCH ×3 (07:48→21:19)
[2018-10-14] MEDS: PROTONIX IV SCH (07:48)
[2018-10-14] MEDS: SODIUM CHLORIDE 0.9% INJ SCH (07:48)
[2018-10-14 08:26] LABS: AGAP 10; ALB/GLOB RATIO 1.5; ALBUMIN 2.9 g/dL (3.5-5.0); ALKALINE PHOSPHATASE 48 U/L (32-104); BUN 9 mg/dL (8-22); CALCIUM 7.5 mg/dL (8.8-10.2); CHLORIDE 103 mmol/L (98-107); COSMO 285; CREATININE 0.6 mg/dL (0.5-0.9); ESTIMATED GFR > 60; GLUCOSE 250 mg/dL (70-104); GOT 325 U/L (10-30); GPT 84 U/L (10-36); PHOSPHORUS 1.9 mg/dL (2.7-4.5); POTASSIUM 3.8 mmol/L (3.5-5.1); SODIUM 139 mmol/L (136-145); TCO2 26 mmol/L (25-35); TOTAL BILIRUBIN 1.08 mg/dL (0.20-1.00); TOTAL PROTEIN 4.8 g/dL (6.3-8.3)
[2018-10-14 08:54] LABS: CK TOTAL > 20000 U/L (24-173)
[2018-10-14] MEDS ORDERED: SODIUM PHOSPHATE 30 MMOL in NS 250 ML IV ONE (09:12)
--- NOTE | 2018-10-14 09:20 | HEMO/ONC PROGRESS NOTE ---
DATE: 10/14/2018 HPI/SUBJECTIVE: Ms. Bay is awake and alert this morning in bed. She states that she is feeling rather well. She is looking forward to a bath and getting out of the bed, with the assistance of the nurses today. The patient can move both of her lower extremities, though she is still unable to move the toes on her left foot. She denies any pain at this time. She had a good night, with no significant events overnight. OBJECTIVE: Vital Signs: Temperature 96.8 degrees, pulse rate 124, respiratory rate 25, blood pressure 130/75, O2 saturation 98% on Venturi mask at 50%. She is in 0/10 pain. General: The patient is in no acute distress. She is overweight, with a BMI of 34.3. She is well developed, well nourished. Skin: Warm, dry and intact without rashes or lesions. HEENT: Sclerae anicteric. Pupils are PERRLA. Oral mucosa is pink and moist. Cardiovascular: Normal S1, S2. Heart rate and rhythm regular. Respiratory: No signs of respiratory distress. Lung sounds are clear to auscultation. No rales, rhonchi, or wheezes noted. Abdomen: The abdomen is in a binder, but soft and nontender without distention. Surgical incisions have clean, dry, dressings on the lower abdomen. Musculoskeletal: The patient's lower legs are warm. Sensation is intact. The patient can move her lower extremities and feet, but she is unable to move her toes on the left foot. Pulses palpable. Neurologic: The patient is awake, alert, and oriented x3. No focal motor deficits noted. LABORATORY: WBC 6.28, hemoglobin 17.6, hematocrit 48.8, platelet count 45,000. ANC 5.22. Calcium 7.5, phosphorus 1.9. AST 325, ALT 84, alkaline phosphatase 48. B12 171. Folate 9.0. Fibrinogen 395. D-dimer 3.87. Reticulocyte count 1.98. ASSESSMENT: 1. Thrombocytopenia. 2. Probable sepsis. 3. Lactic acidosis. PLAN: Today, we added a heparin PF4 antibody for evaluation. It was noted that the patient's B12 and folate levels were low. We have added B12 subQ injections for the next 4 days as well as oral folic acid to be administered. The patient DIC profile was negative. It appears the patient is most likely experiencing peripheral destruction of her platelets. Supportive management is to be continued. The patient should improve in the next couple of days. Transfuse platelets if needed pre Dr Tena's parameters. Call if needed over the weekend. Dictated by SLOAN Gannon for Jose Pugh MD MTDD
[2018-10-14] MEDS: LOPRESSOR IV SCH ×3 (09:58→21:20)
[2018-10-14] MEDS: CYANOCOBALAMIN IM SCH (09:58)
[2018-10-14] MEDS: FOLIC ACID PO SCH (09:59)
--- NOTE | 2018-10-14 10:43 | GENERAL SURGERY PROGRESS NOTE ---
DATE: 10/14/2018 SUBJECTIVE: She is now postop day 2 and postop day 1. Postop day 2 from aortobifem, postop day 1 after thrombectomy of the left limb of her graft in her femoral arteries. OBJECTIVE: She is awake and alert. Her heart rate is 122 blood pressure 181/86. She says her legs feel good and warm. She moves her right leg normally her left leg is more difficult to move. She does not complain with passive motion of her ankles. Her calves did not feel particularly tight. She has bilateral breath sounds. Her bandages are dry. Intake yesterday with 4175, output 3275, urine output has been satisfactory. LABORATORY DATA: White count 6300, hemoglobin 17.6, hematocrit 48.8, platelet count down to 45,000, pH 7.3, pCO2 50, PO2 69. Total hemoglobin on the art line was 10.8. Hemoglobin A1c is 6.5. Chemistry is pending. ASSESSMENT: 1. Her aortic graft is patent. The limbs are patent. The arterial femoral arteries were patent with palpable pedal pulses. 2. I do not think she has any evidence of compartment syndrome. I do think her elevated CPK was due to the ischemia in the first postoperative day and I anticipate this will normalize. 3. I do not have a good reason for the thrombosis of her graft. I will therefore keep her on Eliquis in hopes that we can maintain patency at least for a while. 4. The thrombocytopenia may have been the result of heparin but in view of no evidence of bleeding I do not recommend any platelet transfusion at this time. 5. I am perfectly content with her getting up and sitting in a chair. We will keep her art line for now. [facility] will see her over the weekend. cc: MD Telma Bustos MD
--- NOTE | 2018-10-14 14:00 | PROGRESS NOTE ---
DATE: 10/14/2018 SUBJECTIVE: The patient is awake and alert. She states that she is able to move her feet and states that her pain is under better control today. OBJECTIVE: Vital Signs: Temperature 96.8 degrees, blood pressure 125/72, heart rate 113, respirations 19, O2 saturations 97% on a Venturi mask, intake 4.1 L, output 3.2 L. General: This is a morbidly obese female lying in bed in no acute distress. Heart: S1, S2 normal, tachycardic. Lungs: Equal air entry bilaterally, no wheezing, no rales. Abdomen: Positive bowel sounds, soft, nontender, nondistended. Extremities: No edema, no cyanosis, no calf tenderness. Neuro: The patient is alert and oriented x4. LABS: White blood cell count 6.2, hemoglobin 17, hematocrit 48, platelets 45,000. Sodium 139, potassium 3.8, chloride 103, CO2 26, BUN 9, creatinine 0.6, glucose 250, calcium 7.5, phosphorus 1.9, AST 325, ALT 84, CK greater than 20,000. Chest x-ray shows hazy bibasilar infiltrates that are nonspecific . ASSESSMENT AND PLAN: 1. Acute hypoxemic respiratory failure. Continue with bronchodilator therapy and supplemental oxygen. Will consult with the returns clerk. 2. Sepsis. So far the blood cultures are negative. The patient's lactic acidosis has resolved, she remains on broad-spectrum antibiotics at this time. Will continue to monitor the patient closely. 3. Rhabdomyolysis. Unchanged. Hopefully this will improve, the patient is currently on intravenous fluids. Her urine output remains excellent. 4. Status post open thrombectomy of left limb of the aortobifemoral graft with thrombectomy of both femoral arteries. Management as per the general surgeon. 5. Thrombocytopenia. Platelet count is a little lower today, hematology is following. 6. Diabetes mellitus type 2. Continue with sliding scale insulin. 7. Tachycardia, will start the patient on Lopressor. 8. Morbid obesity. Aware. 9. Hypertension. The patient has been started on IV Lopressor. 10. Transaminitis. This may be secondary to transient ischemia. Will continue to monitor the liver function studies closely. Will also check a hepatitis profile. 11. Vitamin B12 deficiency. The patient is now on B12 replacement. 12. Folate deficiency. The patient is on folic acid replacement. 13. Gastrointestinal prophylaxis. Will continue on Protonix. cc: Telma Corona MD MTDD
--- NOTE | 2018-10-14 14:57 | PULMONOLOGY CONSULTATION ---
DATE: 10/14/2018 REQUESTING PHYSICIAN: Dr. Corona. REASON FOR CONSULTATION: Respiratory failure. HISTORY OF PRESENT ILLNESS: Ms. Bay is a 53-year-old white female with a greater than 35 pack- year history for tobacco who underwent who has developed bilateral lower extremity claudication. The patient underwent an aortobifemoral bypass graft on 10/12/2018. Estimated blood loss during that procedure was 3200 mL. The patient returned to the operating room on the following day for an open thrombectomy of both femoral arteries due to thrombosis of the left limb of the aortobifemoral graft and bilateral femoral arteries. Her oxygen requirements have increased over the last 24 to 48 hours. Currently she sitting in the bedside chair and is without specific complaints. PAST MEDICAL HISTORY: 1. Chronic obstructive pulmonary disease with a 35 pack-year history for tobacco. 2. Obesity. 3. Peripheral vascular disease as per above. 4. Status post bilateral tubal ligation. 5. Cholecystectomy. 6. Status post hysterectomy. 7. Status post fusion of L4-L5. 8. Hypertension. 9. Diabetes mellitus. FAMILY HISTORY: Notable for Parkinson disease. SOCIAL HISTORY: The patient has a 35 pack-year history for tobacco. She reports she stopped smoking approximately 1 year ago. REVIEW OF SYSTEMS: Notable for shortness of breath with movement. Some lower extremity pain which is improving. She is an active snorer. She has gained approximately 20 to 30 pounds with smoking cessation. PHYSICAL EXAMINATION: General: Reveals an obese white female resting comfortably in her bedside chair, in no distress. She has been afebrile for the last 24 hours. Vital Signs: Blood pressure 141/71, heart rate 112, respiratory rate 19, oxygen saturation 99% on 50% Venturi mask. HEENT: Pupils are equal and reactive. Oropharynx appears clear. Neck: Supple. Chest: Reveals decreased breath sounds right base. Cardiac Exam: S1-S2. Abdomen: Obese and soft. Extremities: Warm to the touch. LABORATORIES: Chest x-ray reveals elevation of the right hemidiaphragm, which appears to be chronic, mild bibasilar infiltrates with prominent cardiac silhouette. Arterial blood gas reveals a pH 7.38, pCO2 of 50, PO2 of 69, on 50% Venturi mask with a normal lactate. White blood count 16.28, hemoglobin 17.6, platelet count 45,000. Sodium 139, potassium 3.8, chloride 103, bicarbonate 26, BUN 9, creatinine 0.6, glucose 250. Hemoglobin A1c 6.5, phosphorus 1.9. Creatine kinase greater than 20,000. IMPRESSION: 53-year-old with: 1. Acute hypoxemic respiratory failure. 2. Hypercapnic respiratory failure. I suspect that this is chronic and may be related to ventilatory insufficiency, associated with COPD, plus elevated right hemidiaphragm plus obesity. 3. Rhabdomyolysis. 4. History of tobacco use. 5. Prominent snoring history. RECOMMENDATIONS: 1. Continue current oxygen to maintain saturation greater than 90%. 2. Agree with mobilizing patient out of bed as tolerated. 3. Initiate incentive spirometry. 4. Continue bronchial hygiene. 5. Continue current fluid. She appears to have mild vascular distention, but she does have rhabdomyolysis and will need ongoing fluid replacement. 6. Consider CT scan of the thorax when her acute illness has resolved. This could be performed as an outpatient as a screening tool given her extensive tobacco history. 7. Recommend outpatient sleep evaluation. cc: MD Telma Martino MD
[2018-10-15] MEDS: HUMULIN R SUBQ SCH ×6 (03:25→23:20)
[2018-10-15] MEDS: LOPRESSOR IV SCH ×4 (03:25→21:14)
[2018-10-15] MEDS: XOPENEX NEB INH SCH ×4 (03:45→21:38)
[2018-10-15] MEDS: VANCOMYCIN 2,000 MG in NS 500 ML IV SCH (04:45)
[2018-10-15] MEDS: DILAUDID IV PRN ×4 (04:45→21:14)
[2018-10-15] MEDS: MERREM 1 GM in NS 50 ML IV SCH ×3 (06:00→22:15)
[2018-10-15 06:53] LABS: BASO# 0.01 X1000 (0.0-0.2); BASO% 0.1 % (0.0-0.8); EOS# 0.02 X1000 (0.0-0.7); EOS% 0.2 % (0.0-10.0); HEMATOCRIT 29.2 % (37.0-47.0); HEMOGLOBIN 9.6 g/dL (12.0-16.0); LYMPH# 1.37 X1000 (1.2-3.4); LYMPH% 13.3 % (20.5-51.1); MCH 30.5 PG (27-31); MCHC 32.9 g/dL (33-37); MCV 92.7 FL (81-99); MONO# 0.85 X1000 (0.11-0.59); MONO% 8.2 % (1.7-9.3); MPV 10.1 FL (7.4-10.4); NEUT# 8.06 X1000 (1.4-6.5); NEUT% 78.2 % (42.2-75.2); PLT 67 X1000 (130-400); RBC 3.15 XMIL (4.2-5.4); WBC 10.31 X1000 (4.8-10.8)
[2018-10-15 07:26] LABS: AGAP 5; ALB/GLOB RATIO 0.8; ALBUMIN 2.4 g/dL (3.5-5.0); ALKALINE PHOSPHATASE 65 U/L (32-104); BUN 8 mg/dL (8-22); CALCIUM 7.6 mg/dL (8.8-10.2); CHLORIDE 103 mmol/L (98-107); COSMO 277; CREATININE 0.4 mg/dL (0.5-0.9); ESTIMATED GFR > 60; GLUCOSE 145 mg/dL (70-104); GOT 350 U/L (10-30); GPT 99 U/L (10-36); PHOSPHORUS 1.2 mg/dL (2.7-4.5); POTASSIUM 3.2 mmol/L (3.5-5.1); SODIUM 138 mmol/L (136-145); TCO2 30 mmol/L (25-35); TOTAL BILIRUBIN 0.74 mg/dL (0.20-1.00); TOTAL PROTEIN 5.3 g/dL (6.3-8.3)
[2018-10-15 07:32] LABS: CK TOTAL 17612 U/L (24-173)
[2018-10-15] MEDS ORDERED: POTASSIUM PHOSPHATE 40 MMOL in NS 250 ML IV ONE (07:54)
--- NOTE | 2018-10-15 07:57 | Diag Imaging Result Doc PS360 ---
CHEST-PORTABLE - 10/15/2018 INDICATION: dyspnea COMPARISON: 10/14/2018 FINDINGS: Stable right central line. Stable severely low lung volumes. Stable cardiomegaly and pulmonary vascular congestion. There is worsening extensive hazy interstitial infiltrate bilaterally. IMPRESSION: Severely low lung volumes. Worsening bilateral nonspecific infiltrates. Cardiomegaly and pulmonary vascular congestion. Electronically signed by Renato Valenzuela 10/15/2018 7:55 AM
[2018-10-15] MEDS: PROTONIX IV SCH (08:26)
[2018-10-15] MEDS: CYANOCOBALAMIN IM SCH (08:26)
[2018-10-15] MEDS: ELIQUIS PO SCH ×2 (08:26→21:13)
[2018-10-15] MEDS: FOLIC ACID PO SCH (08:26)
[2018-10-15] MEDS ORDERED: NS 500 ML IV SCH (09:00)
[2018-10-15] MEDS: 1/2 NS 1,000 ML IV SCH ×2 (09:20→15:58)
[2018-10-15] MEDS ORDERED: LASIX IV ONE ×2 (10:42→18:00)
[2018-10-15 13:29] LABS: HEMATOCRIT 31.3 % (37.0-47.0); HEMOGLOBIN 10.6 g/dL (12.0-16.0)
--- NOTE | 2018-10-15 13:38 | GENERAL SURGERY PROGRESS NOTE ---
DATE: 10/15/2018 SUBJECTIVE: Doing okay. Not passing gas but tolerating clear liquids. Low-grade tachycardia. Her feet are warm. She does have some paresthesias and little bit of weakness but overall no pain. White count 10, hematocrit 29. Creatinine is 0.4. Her CK is downtrending. ASSESSMENT AND PLAN: This is a 53-year-old female status post aortobifemoral. She had thrombectomy her left limb. Her compartments are soft. Her feet are well perfused and palpable pulses. She is being treated with anticoagulants for concern of heparin-induced thrombocytopenia. Monitor closely. Keep her on clear liquids until she has return of bowel function. She is in the ICU and I agree with this. cc: MD Telma Chow MD
--- NOTE | 2018-10-15 15:20 | PULMONOLOGY PROGRESS NOTE ---
DATE: 10/15/2018 SUBJECTIVE: The patient reports she feels better. She is now sitting in a chair. She is on nasal cannula. OBJECTIVE: Vital Signs: Maximum temperature in the last 24 hours 99.9 degrees. Blood pressure 131/74, heart rate 109, respiratory rate 15, oxygen saturation 99% by 5 L per nasal cannula. HEENT: Pupils are equal and reactive. Oropharynx is clear. Neck: Is supple. Chest: Reveals crackles both lung bases with decreased breath sounds right lung base. Cardiac: S1, S2 with increased rate. Abdomen: Is obese and soft. Extremities: Warm to the touch. LABORATORIES: Chest x-ray reveals cardiomegaly, increased vascular congestion, with probable worsening pulmonary edema. White blood count 10.31, hemoglobin 9.6, platelet count 67,000. Sodium 138, potassium 3.2, chloride 103, bicarbonate 30, BUN 8, creatinine 0.4. Creatine kinase has decreased to 17,612. Arterial blood gas on Ventimask reveals pH 7.38, pCO2 of 50, pO2 of 69. IMPRESSION: A 53-year-old with 1. Acute hypoxemic respiratory failure. 2. Chronic hypercapnic respiratory failure. 3. Rhabdomyolysis. 4. History of snoring. 5. History of tobacco use. PLAN: 1. Attempt diuretic trial given increasing vascular congestion on chest x-ray. 2. Continue bronchial hygiene. 3. Mobilize the patient as tolerated. 4. Wean oxygen as tolerated. 5. Recommend outpatient sleep evaluation. 6. Consider outpatient CT screening scan to rule out underlying malignancy/pulmonary nodules. cc: MD Telma Martino MD
[2018-10-15 16:26] LABS: POTASSIUM 3.4 mmol/L (3.5-5.1)
[2018-10-15] MEDS ORDERED: POTASSIUM PHOSPHATE 50 MMOL in NS 250 ML IV ONE (16:28)
--- NOTE | 2018-10-15 16:55 | PROGRESS NOTE ---
DATE: 10/15/2018 SUBJECTIVE: The patient is alert and awake and she states that she feels a lot better today. She states that she would like something to eat. OBJECTIVE: Vital Signs: Temperature 97.7 degrees, blood pressure 135/75, heart rate 111, respirations 14, O2 saturations 94% on 4 L nasal cannula, input 4 L, output 1.9 L. General: This is a morbidly obese female lying in bed in no acute distress. Heart: S1, S2 normal. Tachycardic. Lungs: Equal air entry bilaterally. No wheezing, no rales, no rhonchi. Abdomen: Positive bowel sounds. Soft, nontender, nondistended. Extremities: No edema, no cyanosis. No calf tenderness. Neuro: The patient is alert and oriented x4. LABS: White blood cell count 10, hemoglobin 10, hematocrit 31, platelets 67,000. Sodium 138, potassium 3.4, chloride 103, CO2 30, BUN 8, creatinine 0.4, glucose 145, magnesium 1.9, phosphorus 2, calcium 7.6. CK 17,612. AST 350, ALT 99, alkaline phosphatase 65, albumin 2.4. Chest x-ray shows cardiomegaly and pulmonary vascular congestion with worsening bilateral infiltrates. ASSESSMENT AND PLAN: 1. Acute on chronic hypercapnic respiratory failure. Improved. The patient is on nasal cannula. 2. Pulmonary edema. The patient has been started on diuretic therapy. Will monitor her response closely. 3. Rhabdomyolysis. Slowly improving. The patient remains on IV fluids. 4. Thrombocytopenia. Improved. Hematology is following. 5. Status post open thrombectomy of the left limb of the aortobifemoral graft with thrombectomy of both femoral arteries. Management as per the general surgeon. 6. Diabetes mellitus type 2. Continue on sliding scale insulin. 7. Transaminitis. This is a little worse today. The patient does have a history of severe fatty liver disease. Will check an abdominal ultrasound. The hepatitis profile is currently pending. 8. B12 deficiency. Continue with B12 replacement. 9. Folate deficiency. Continue with folic acid replacement. 10. Deep vein thrombosis prophylaxis. The patient is currently on Eliquis. cc: Telma Corona MD MTDMike
[2018-10-15] MEDS: ZOFRAN IV PRN (21:14)
[2018-10-16] MEDS: 1/2 NS 1,000 ML IV SCH ×5 (01:30→20:51)
[2018-10-16] MEDS: DILAUDID IV PRN ×5 (01:36→20:52)
[2018-10-16] MEDS: HUMULIN R SUBQ SCH ×6 (03:36→23:40)
[2018-10-16] MEDS: LOPRESSOR IV SCH ×4 (03:37→20:51)
[2018-10-16] MEDS: XOPENEX NEB INH SCH ×4 (03:50→21:47)
[2018-10-16] MEDS: VANCOMYCIN 2,000 MG in NS 500 ML IV SCH (04:08)
[2018-10-16] MEDS: MERREM 1 GM in NS 50 ML IV SCH ×3 (06:01→23:41)
[2018-10-16 06:29] LABS: HEMOGLOBIN 9.7 g/dL (12.0-16.0); MCH 30.1 PG (27-31); MCHC 33.4 g/dL (33-37); MCV 90.1 FL (81-99); MPV 10.5 FL (7.4-10.4); RBC 3.22 XMIL (4.2-5.4); RDW 13.6 % (11.5-14.5); WBC 9.45 X1000 (4.8-10.8)
[2018-10-16 06:57] LABS: BUN 11 mg/dL (8-22); CALCIUM 7.2 mg/dL (8.8-10.2); CHLORIDE 100 mmol/L (98-107); MAGNESIUM 1.8 mg/dL (1.5-2.7); POTASSIUM 3.3 mmol/L (3.5-5.1); SODIUM 141 mmol/L (136-145); TOTAL BILIRUBIN 0.75 mg/dL (0.20-1.00)
[2018-10-16 07:28] LABS: ALB/GLOB RATIO 0.8; ALBUMIN 2.5 g/dL (3.5-5.0); ALKALINE PHOSPHATASE 85 U/L (32-104); CREATININE 0.4 mg/dL (0.5-0.9); ESTIMATED GFR > 60; GLUCOSE 158 mg/dL (70-104); GOT 277 U/L (10-30); GPT 93 U/L (10-36); PHOSPHORUS 2.3 mg/dL (2.7-4.5); TCO2 27 mmol/L (25-35); TOTAL PROTEIN 5.5 g/dL (6.3-8.3)
[2018-10-16 07:34] LABS: CK TOTAL 12531 U/L (24-173)
[2018-10-16 07:41] LABS: AGAP 14
[2018-10-16 07:43] LABS: COSMO 284
--- NOTE | 2018-10-16 07:43 | Diag Imaging Result Doc PS360 ---
EXAM: CHEST-PORTABLE - 10/16/2018 HISTORY: pulmonary edema TECHNIQUE: Portable chest COMPARISON: 10/15/2018 FINDINGS: Inspiration is mildly deeper compared to prior. There has been interval decrease in bilateral infiltrates or edema. There is persistent elevation right hemidiaphragm with mild subsegmental atelectasis at the right base. There is no substantial pleural effusion or pneumothorax identified. The intravenous catheter remains in place. IMPRESSION: Decrease in bilateral infiltrates or edema compared to prior. Electronically signed by Niranjan Rawls 10/16/2018 7:41 AM
[2018-10-16] MEDS ORDERED: POTASSIUM PHOSPHATE 30 MMOL in NS 250 ML IV ONE (07:45)
[2018-10-16] MEDS: CYANOCOBALAMIN IM SCH (08:34)
[2018-10-16] MEDS: PROTONIX IV SCH (08:35)
[2018-10-16] MEDS: FOLIC ACID PO SCH (08:35)
[2018-10-16] MEDS: ELIQUIS PO SCH ×2 (08:35→20:52)
[2018-10-16] MEDS ORDERED: LASIX IV ONE (09:47)
[2018-10-16] MEDS: ZOFRAN IV PRN ×2 (10:27→20:51)
[2018-10-16 10:44] LABS: HEPATITIS PROFILE ACUTE SEE COMMENTS
--- NOTE | 2018-10-16 12:39 | Diag Imaging Result Doc PS360 ---
EXAM: US ABDOMEN-COMPLETE - 10/16/2018 HISTORY: elevated lfts TECHNIQUE: Ultrasound abdomen COMPARISON: 05/03/2015 FINDINGS: Exam is substantially limited, apparently due to the presence of surgical bandage, as well as artifacts from bowel gas. The visualized portion of the liver appears diffusely echodense suggesting fatty infiltration. There is no focal liver lesion identified. The spleen is unremarkable. The gallbladder surgically absent. The common bile duct and pancreas are obscured by artifacts. The right kidney is obscured by artifacts. The left kidney is unremarkable. Abdominal aorta and IVC are obscured by artifacts. IMPRESSION: Substantially limited exam due to artifacts. Apparent fatty infiltration of liver. No focal liver lesion identified. Electronically signed by Niranjan Rawls 10/16/2018 12:37 PM
[2018-10-16] MEDS ORDERED: KLOR-CON PO ONE (13:00)
--- NOTE | 2018-10-16 14:24 | PROGRESS NOTE ---
DATE: 10/16/2018 SUBJECTIVE: The patient is resting comfortably in bed. She states that her breathing has improved. OBJECTIVE: Vital Signs: T-max 98.6 degrees, blood pressure 132/65, heart rate 109, respirations 14, O2 saturation is 94% on 3 L nasal cannula. Intake 4.7 L. Output 8 L. General: This is a morbidly obese female lying in bed, in no acute distress. Heart: S1, S2 normal. Tachycardic. Lungs: Equal air entry bilaterally. No wheezing. No rales. Abdomen: Positive bowel sounds. Soft, nontender, nondistended. Extremities: No edema. No cyanosis. Neurologic: The patient is alert and oriented x4. LABS: White blood cell count 9.4, hemoglobin 9.7, hematocrit 29, platelets 115,000. Sodium 141, potassium 3.3, chloride 100, CO2 27, BUN 11, creatinine 0.4, glucose 158, phosphorus 2.3, calcium 7.2, AST 277, ALT 93, alkaline phosphatase 85. CK 12,531. ASSESSMENT AND PLAN: 1. Chronic hypercapnic respiratory failure. Improving. 2. Pulmonary edema. Improved. Continue with diuretic therapy as directed by Dr. Ibrahim. 3. Rhabdomyolysis. Slowly improving. 4. Thrombocytopenia. Improved. 5. Status post open thrombectomy of the left limb of the aortobifemoral graft with thrombectomy of both femoral arteries. Aware. Management as per the general surgeon. 6. Transaminitis. Unchanged. Will continue to monitor closely. 7. Fatty liver disease. Aware. 8. Diabetes mellitus type 2. Continue on sliding scale insulin. 9. B12 and folate deficiency. Continue with replacement. 10. Deep vein thrombosis prophylaxis. Continue on Eliquis. cc: Telma Corona MD
--- NOTE | 2018-10-16 14:31 | GENERAL SURGERY PROGRESS NOTE ---
DATE: 10/16/2018 SUBJECTIVE: She is passing some flatus, but continues to belch. Abdomen is mildly distended. Her feet are weak, but palpable pedal pulses are noted. LABORATORY DATA: White count 9, hematocrit 29. Creatinine 0.4. ASSESSMENT AND PLAN: This is a 53-year-old female status post aortobifemoral bypass with thrombectomy of her bilateral limbs. She is doing well. Her CK is downtrending. Her feet are well perfused. Her ileus is slowly resolving. Will remove her Sullivan catheter, transfer her to the step-down unit. I reviewed her medications. She is on appropriate medications. Dr. Ibrahim diuresed her. Will continue to follow her going forward. cc: MD Telma Chow MD
--- NOTE | 2018-10-16 22:08 | PULMONOLOGY PROGRESS NOTE ---
DATE: 10/16/2018 SUBJECTIVE: The patient is awake and alert. She is sitting in a chair. She is without specific complaints. She reports her legs are "weak and feel like Jell-I" but otherwise she has no complaints. OBJECTIVE: Vital Signs: The patient has been afebrile for the last 24 hours. Blood pressure 105/61, heart rate 103, respiratory rate 14, oxygen saturation 93% on 3 L per nasal cannula. HEENT: Pupils are equal and reactive. Oropharynx appears clear. Neck: Is supple. Chest: Reveals mild tympany with good bowel sounds. Extremities: Are warm to the touch. LABORATORIES: White blood count 9.45, hemoglobin 9.7, platelet count 115,000. Sodium 141, potassium 3.3, chloride 100, bicarbonate 27, BUN 11, creatinine 0.4, phosphorus 2.3, magnesium 1.8. Chest x-ray reveals decrease in bilateral edema with stable chronic elevation of the right hemidiaphragm. IMPRESSION: A 53-year-old with 1. Acute hypoxemic respiratory failure. 2. Acute hypercapnic respiratory failure. 3. Rhabdomyolysis with continued decrease in creatine kinase. 4. History of tobacco use. 5. Witnessed snoring without apneas. PLAN: 1. Continue bronchial hygiene. 2. Wean oxygen as tolerated. 3. Continue to mobilize the patient as tolerated with initiation of physical therapy. 4. Recommend outpatient sleep evaluation and possible outpatient CT scanning of the thorax for screening of pulmonary nodules. cc: MD Telma Martino MD
[2018-10-17] MEDS: DILAUDID IV PRN ×3 (02:58→19:48)
[2018-10-17] MEDS: LOPRESSOR IV SCH ×4 (03:13→20:08)
[2018-10-17] MEDS: HUMULIN R SUBQ SCH ×6 (03:13→23:58)
[2018-10-17] MEDS: 1/2 NS 1,000 ML IV SCH ×5 (03:15→21:06)
[2018-10-17] MEDS: XOPENEX NEB INH SCH ×4 (03:34→22:17)
[2018-10-17 05:22] LABS: HEMATOCRIT 29.7 % (37.0-47.0); HEMOGLOBIN 10.1 g/dL (12.0-16.0); RBC 3.31 XMIL (4.2-5.4); WBC 8.25 X1000 (4.8-10.8)
[2018-10-17 05:23] LABS: MCH 30.5 PG (27-31); MCV 89.7 FL (81-99); RDW 13.6 % (11.5-14.5)
[2018-10-17 05:40] LABS: AGAP 11; ALB/GLOB RATIO 0.8; ALBUMIN 2.5 g/dL (3.5-5.0); ALKALINE PHOSPHATASE 78 U/L (32-104); BUN 8 mg/dL (8-22); CALCIUM 7.6 mg/dL (8.8-10.2); CHLORIDE 101 mmol/L (98-107); CK TOTAL 8999 U/L (24-173); COSMO 277; CREATININE 0.4 mg/dL (0.5-0.9); ESTIMATED GFR > 60; GLUCOSE 157 mg/dL (70-104); GOT 214 U/L (10-30); GPT 98 U/L (10-36); PHOSPHORUS 2.1 mg/dL (2.7-4.5); POTASSIUM 3.9 mmol/L (3.5-5.1); SODIUM 138 mmol/L (136-145); TCO2 26 mmol/L (25-35); TOTAL BILIRUBIN 0.83 mg/dL (0.20-1.00); TOTAL PROTEIN 5.7 g/dL (6.3-8.3)
[2018-10-17] MEDS: MERREM 1 GM in NS 50 ML IV SCH ×2 (06:29→14:34)
[2018-10-17] MEDS ORDERED: G.I. COCKTAIL PO ONE (07:42)
[2018-10-17] MEDS: CYANOCOBALAMIN IM SCH (08:17)
[2018-10-17] MEDS: VANCOMYCIN 2,000 MG in NS 500 ML IV SCH (08:17)
[2018-10-17] MEDS: SODIUM CHLORIDE 0.9% INJ SCH (08:18)
[2018-10-17] MEDS: FOLIC ACID PO SCH (08:18)
[2018-10-17] MEDS: PROTONIX IV SCH (08:18)
[2018-10-17] MEDS: ELIQUIS PO SCH ×2 (08:19→20:08)
[2018-10-17] MEDS: ZOFRAN IV PRN ×3 (08:35→19:48)
--- NOTE | 2018-10-17 09:33 | HEMO/ONC PROGRESS NOTE ---
DATE: 10/17/2018 SUBJECTIVE: Ms. Bay is sitting up in her bed this morning with her breakfast in front of her. She states that she continues to feel better every day. She tells me that she is in the ICU because there is not a floor bed available. She did not have any complaints this morning. She is able to move both her lower extremities well. She is having more improvement with her left toes. She denies pain to her lower extremities. Her appetite is good. She has had no significant events over the weekend. OBJECTIVE: Vital signs: Temperature 97.9 degrees, pulse rate 100, respiratory rate 15, blood pressure 145/82, O2 saturation 97% on 3 L via nasal cannula. She is in 0/10 pain. General: The patient is in no acute distress. She is well developed, well nourished. Skin: Warm, dry, and intact, without ecchymosis or petechiae. HEENT: Sclerae is anicteric. Pupils are PERRLA. Oral mucosa is pink and moist. Cardiovascular: Normal S1, S2. Heart rate and rhythm regular. Respiratory: No signs of respiratory distress. Lung sounds are clear to auscultation. No rales, rhonchi or wheezes noted. Abdomen: The abdomen remains in a binder. She has some epigastric tenderness due to acid reflux. Surgical incisions to lower abdomen have clean, dry dressings. Abdomen is soft without distention. Musculoskeletal: The patient's lower extremities are pink and warm. Sensation is intact. She is able to move both extremities. She can feel her left toes but cannot wiggle them strongly at this point. Neurological: The patient is awake, alert, and oriented. No focal motor deficits noted. LABORATORY: WBC is 8.25, hemoglobin 10.1, hematocrit 29.7. Platelet count 151,000. Calcium 7.6, phosphorus 2.1. IMAGING: Chest x-ray with decrease in bilateral infiltrates or edema compared to the prior. Abdominal ultrasound with no focal liver lesions identified. ASSESSMENT: 1. Thrombocytopenia, improved. 2. Probable sepsis. 3. Rhabdomyolysis, improving. PLAN: We will continue to monitor the platelets regarding thrombocytopenia. We have also been repleting her B12 and folate levels. Platelet count has normalized. Dictated by SLOAN Gannon for Jose Pugh MD Patient seen and examined. As above. Thrombocytopenia has resolved. I will sign off at this time. Please call with any questions. Jose Pugh M.D. [facility]
--- NOTE | 2018-10-17 12:36 | PROGRESS NOTE ---
DATE: 10/17/2018 SUBJECTIVE: The patient is resting comfortably in bed. She is sipping on some coffee. She does complain of reflux. OBJECTIVE: Vital Signs: Temperature 98.6 degrees, blood pressure 154/95, heart rate 98, respirations 13, O2 saturation is 96% on room air. General: This is a morbidly obese female lying in bed, in no acute distress. Heart: S1, S2 normal. Regular rate and rhythm. Lungs: Clear to auscultation bilaterally. No wheezing. No rales. No rhonchi. Abdomen: Positive bowel sounds. Soft, nontender, nondistended. Extremities: No edema. No cyanosis. No calf tenderness. Neurologic: The patient is alert and oriented x4. Laboratory Data: White blood cell count 8.2, hemoglobin 10, hematocrit 29, platelets 151,000. Sodium 138, potassium 3.9, chloride 101, CO2 of 26, BUN 8, creatinine 0.4, glucose 157, phosphorus 2.1. AST 214, ALT 98, alkaline phosphatase 78. CK 8999. ASSESSMENT AND PLAN: 1. Chronic hypercapnic respiratory failure. Stable. 2. Pulmonary edema. Improved. 3. Rhabdomyolysis. Slowly improving. 4. Thrombocytopenia. Resolved. 5. Status post open thrombectomy of the left limb of the aortobifemoral graft with thrombectomy of both femoral arteries. Management as per the general surgeon. 6. Transaminitis. Slowly improving. 7. Fatty liver disease. Aware. 8. Diabetes mellitus type 2. Continue on sliding scale insulin. 9. B12 deficiency. Continue with B12 replacement. 10. Folate deficiency. Continue with folic acid replacement. 11. Deep vein thrombosis prophylaxis. Continue on Eliquis. cc: Telma Corona MD
[2018-10-17] MEDS: NEUTRA-PHOS PO SCH ×4 (13:18→20:16)
--- NOTE | 2018-10-17 14:57 | GENERAL SURGERY PROGRESS NOTE ---
DATE: 10/17/2018 Ms. Bay is now 5 days after her aortobifemoral, 4 days after her thrombectomy. She is generally well. Heart rate is 114, blood pressure 141/69, her oxygen saturation is 90%. She is breathing comfortably. She is having some reflux symptoms. She is passing lots of flatus. Her wounds are fine. She has a palpable dorsalis pedis pulses bilaterally. White count is 8000, hemoglobin 10.1, hematocrit 29.7, platelet count is 151,000. Sodium 138, potassium 3.9, chloride 101, carbon dioxide 26, BUN 8, creatinine 0.4, glucose is 157. Her CPK is down to 9000. The plan will be to advance her diet. We will continue with Fausto based on her thrombosis of her graft. We will transfer to [facility], the monitored room. We will mobilize her up in a chair. cc: MD Telma Bustos MD
--- NOTE | 2018-10-17 15:42 | PULMONOLOGY PROGRESS NOTE ---
DATE: 10/17/2018 SUBJECTIVE: The patient is awake, alert, and conversant. She is sipping on liquids, but does report some reflux symptoms with Jell-O and Sprite. OBJECTIVE: The patient has been afebrile for the last 24 hours, blood pressure 141/69, heart rate 108, respiratory rate 19, oxygen saturation 91% on nasal cannula.HEENT: Pupils are equal and reactive. Oropharynx appears clear. Neck is supple. Chest reveals decreased breath sounds at the right base. Cardiac: S1, S2. Abdomen is obese and soft. Extremities are warm to the touch. LABORATORIES: Sodium 138, potassium 3.9, chloride 101, bicarbonate 26, BUN is 8, creatinine 0.4. Creatine kinase 8999. IMPRESSION: A 53-year-old with: 1. Acute hypoxemic respiratory failure. 2. Acute hypercapnic respiratory failure. 3. Rhabdomyolysis with continued decrease in creatine kinase. 4. Chronic elevation of the right hemidiaphragm. 5. History of witnessed snoring. 6. History of tobacco use. RECOMMENDATION: 1. Continue bronchial hygiene. 2. Agree with plans for transfer to the floor. 3. Wean oxygen as tolerated. 4. Continue physical therapy. 5. Recommend outpatient sleep evaluation and CT scan. cc: MD Telma Martino MD
[2018-10-17] MEDS: LYRICA PO SCH (20:08)
[2018-10-17] MEDS: VANCOMYCIN 1.5 GM in NS 250 ML IV SCH (20:08)
[2018-10-17] MEDS: GLUCOPHAGE PO SCH (20:08)
[2018-10-17] MEDS: ZOCOR PO SCH (20:08)
[2018-10-17] MEDS: ELAVIL PO SCH (20:08)
[2018-10-18] MEDS: DILAUDID IV PRN ×2 (01:42→19:49)
[2018-10-18] MEDS: LOPRESSOR IV SCH ×4 (01:47→20:51)
[2018-10-18] MEDS: XOPENEX NEB INH SCH ×4 (03:37→21:48)
[2018-10-18] MEDS: 1/2 NS 1,000 ML IV SCH (04:06)
[2018-10-18] MEDS: HUMULIN R SUBQ SCH ×5 (04:16→20:50)
[2018-10-18 07:03] LABS: HEMATOCRIT 30.9 % (37.0-47.0); HEMOGLOBIN 10.2 g/dL (12.0-16.0); MCH 30.8 PG (27-31); MCV 93.4 FL (81-99); MPV 10.4 FL (7.4-10.4); RBC 3.31 XMIL (4.2-5.4); WBC 7.83 X1000 (4.8-10.8)
[2018-10-18 07:16] LABS: AGAP 10; ALB/GLOB RATIO 0.9; ALBUMIN 2.6 g/dL (3.5-5.0); ALKALINE PHOSPHATASE 82 U/L (32-104); BUN 8 mg/dL (8-22); CALCIUM 7.9 mg/dL (8.8-10.2); CHLORIDE 102 mmol/L (98-107); COSMO 282; CREATININE 0.3 mg/dL (0.5-0.9); ESTIMATED GFR > 60; GLUCOSE 180 mg/dL (70-104); GOT 141 U/L (10-30); GPT 92 U/L (10-36); SODIUM 140 mmol/L (136-145); TCO2 28 mmol/L (25-35); TOTAL BILIRUBIN 0.98 mg/dL (0.20-1.00); TOTAL PROTEIN 5.4 g/dL (6.3-8.3)
[2018-10-18] MEDS: PROTONIX IV SCH (07:58)
--- NOTE | 2018-10-18 08:41 | PROGRESS NOTE ---
DATE: 10/18/2018 SUBJECTIVE: The patient is resting comfortably in bed. She states that she had 2 bowel movements overnight. No acute events noted overnight. OBJECTIVE: Vital Signs: Temperature 97 degrees, blood pressure 134/79, heart rate 91, respirations 17, O2 saturation 98% on 2 L nasal cannula. Intake 2.8 L, output 760. General: This is a morbidly obese female, lying in bed in no acute distress. Heart: S1, S2 normal. Tachycardic. Lungs: Equal air entry bilaterally. No wheezing, no rales, no rhonchi. Abdomen: Positive bowel sounds. Soft, obese, nontender, nondistended. Extremities: No edema, no cyanosis. Neurologic: The patient is alert and oriented x4. No focal neurologic deficits noted. LABORATORY DATA: White blood cell count 7.8, hemoglobin 10, hematocrit 30, platelets 180,000. Sodium 140, potassium 4, chloride 102, CO2 of 28, BUN 8, creatinine 0.3, glucose 180. Phosphorus 2. CK 3966. ASSESSMENT AND PLAN: 1. Chronic hypercapnic respiratory failure. Stable. 2. Pulmonary edema. Improved. 3. Thrombocytopenia. Resolved. 4. Fatty liver disease. Aware. 5. Rhabdomyolysis. Improved. 6. Diabetes mellitus. Continue on sliding scale insulin. 7. B12 and folate deficiency. Continue with replacement. 8. Deep vein thrombosis prophylaxis. Continue on Eliquis. 9. Disposition. Continue with physical therapy. cc: Telma Corona MD
[2018-10-18] MEDS ORDERED: SODIUM PHOSPHATE 35 MMOL in NS 250 ML IV ONE (08:44)
[2018-10-18] MEDS: VANCOMYCIN 1.5 GM in NS 250 ML IV SCH ×2 (08:46→20:50)
[2018-10-18] MEDS: VITAMIN B-12 PO SCH (09:07)
[2018-10-18] MEDS: GLUCOTROL PO SCH (09:07)
[2018-10-18] MEDS: TRADJENTA PO SCH (09:08)
[2018-10-18] MEDS: JANUVIA PO SCH (09:08)
[2018-10-18] MEDS: FOLIC ACID PO SCH (09:08)
[2018-10-18] MEDS: HYDROCHLOROTHIAZIDE PO SCH (09:08)
[2018-10-18] MEDS: ELIQUIS PO SCH ×2 (09:08→20:51)
[2018-10-18] MEDS: LYRICA PO SCH ×2 (09:30→20:51)
[2018-10-18] MEDS: NORCO-10 PO PRN ×3 (09:30→22:24)
[2018-10-18] MEDS: ZOFRAN IV PRN ×2 (09:30→17:49)
[2018-10-18] MEDS: NS NEB INH SCH ×2 (10:12→15:29)
[2018-10-18] MEDS ORDERED: LASIX IV ONE (17:43)
--- NOTE | 2018-10-18 18:40 | PULMONOLOGY PROGRESS NOTE ---
DATE: 10/18/2018 SUBJECTIVE: The patient is awake, alert, and conversant. She reports her legs continue to have some tingling sensations bilaterally. She also reports increased lower extremity edema today which is making her legs feel uncomfortable. OBJECTIVE: The patient is 2 L positive on I's and O's over the last 24 hours. Blood pressure 133/61, heart rate 106, respiratory rate 18, oxygen saturation 96% on nasal cannula.HEENT: Pupils are equal and reactive. Oropharynx is clear. Neck: Supple. Chest: Reveals decreased breath sounds right base. Cardiac: S1, S2. Abdomen: Is obese and soft. Extremities: Reveal increased peripheral edema. LABORATORIES: White blood count 7.83, hemoglobin 10.2, platelet count 180,000. Sodium 140, potassium 4.0, chloride 102, bicarbonate 28, BUN 8, creatinine 0.3. Creatine kinase is 3966. IMPRESSION: A 53-year-old with 1. Acute hypoxemic respiratory failure. 2. Elevation of the right hemidiaphragm. 3. Rhabdomyolysis with continued decrease in creatine kinase. 4. History of tobacco use. 5. Witnessed snoring in a patient at risk for sleep apnea. RECOMMENDATIONS: 1. Continue bronchial hygiene. 2. Wean oxygen as tolerated. 3. Single dose of Lasix this evening. Will Hep-Lock IV fluids. 4. Continue physical therapy. 5. Recommend consideration of outpatient sleep study and CT scan of the thorax as a screening tool for malignancy given her history of tobacco use. cc: MD Telma Martino MD
--- NOTE | 2018-10-18 19:21 | GENERAL SURGERY PROGRESS NOTE ---
DATE: 10/18/2018 She is now 6 days after her aortobifemoral bypass. She is afebrile, heart rate 106, blood pressure 133/61. Her wounds look fine. She has palpable dorsalis pedis pulses. Intake was 2812, output 760. She is eating. Her bowels have moved. The plan will be to cut her IV rate down to KVO. We will decide about discharge home in the next day or 2. Her hemoglobin is 10, hematocrit 30. Chemistry is fine. cc: MD Telma Bustos MD
[2018-10-18] MEDS: ELAVIL PO SCH (20:51)
[2018-10-18] MEDS: GLUCOPHAGE PO SCH (20:51)
[2018-10-18] MEDS: ZOCOR PO SCH (20:51)
[2018-10-19] MEDS: HUMULIN R SUBQ SCH ×7 (00:59→21:12)
[2018-10-19] MEDS: DILAUDID IV PRN ×2 (01:55→06:12)
[2018-10-19] MEDS: LOPRESSOR IV SCH (01:55)
[2018-10-19] MEDS: XOPENEX NEB INH SCH ×4 (03:21→21:24)
[2018-10-19 06:58] LABS: HEMATOCRIT 30.9 % (37.0-47.0); HEMOGLOBIN 9.9 g/dL (12.0-16.0); MCH 29.9 PG (27-31); MCV 93.4 FL (81-99); MPV 9.9 FL (7.4-10.4); RBC 3.31 XMIL (4.2-5.4); RDW 14.2 % (11.5-14.5); WBC 6.96 X1000 (4.8-10.8)
[2018-10-19 07:23] LABS: AGAP 11; ALB/GLOB RATIO 0.8; ALBUMIN 2.5 g/dL (3.5-5.0); ALKALINE PHOSPHATASE 76 U/L (32-104); BUN 8 mg/dL (8-22); CALCIUM 8.3 mg/dL (8.8-10.2); CHLORIDE 101 mmol/L (98-107); COSMO 284; CREATININE 0.5 mg/dL (0.5-0.9); ESTIMATED GFR > 60; GLUCOSE 139 mg/dL (70-104); GOT 83 U/L (10-30); GPT 80 U/L (10-36); PHOSPHORUS 3.6 mg/dL (2.7-4.5); POTASSIUM 3.1 mmol/L (3.5-5.1); SODIUM 142 mmol/L (136-145); TCO2 30 mmol/L (25-35); TOTAL BILIRUBIN 0.73 mg/dL (0.20-1.00); TOTAL PROTEIN 5.7 g/dL (6.3-8.3)
[2018-10-19] MEDS ORDERED: KLOR-CON PO ONE (07:40)
--- NOTE | 2018-10-19 07:43 | Diag Imaging Result Doc PS360 ---
EXAM: CHEST-2 VIEWS 10/19/2018 HISTORY: abnormal exam TECHNIQUE: PA and lateral chest COMMENT: There is a right subclavian central venous catheter with its tip in the superior vena cava. The atelectatic appearing opacities present in the lingula and right lower lobe have improved since 10/16/2018. IMPRESSION: Improved atelectasis. Electronically signed by Reji Meier 10/19/2018 7:41 AM
[2018-10-19] MEDS: TRADJENTA PO SCH (08:16)
[2018-10-19] MEDS: LYRICA PO SCH ×2 (08:16→20:38)
[2018-10-19] MEDS: JANUVIA PO SCH (08:16)
[2018-10-19] MEDS: VITAMIN B-12 PO SCH (08:16)
[2018-10-19] MEDS: COREG PO SCH ×2 (08:17→20:38)
[2018-10-19] MEDS: PROTONIX IV SCH (08:17)
[2018-10-19] MEDS: HYDROCHLOROTHIAZIDE PO SCH (08:17)
[2018-10-19] MEDS: ELIQUIS PO SCH ×2 (08:17→20:38)
[2018-10-19] MEDS: FOLIC ACID PO SCH (08:17)
[2018-10-19] MEDS: GLUCOTROL PO SCH (08:17)
[2018-10-19] MEDS: VANCOMYCIN 1.5 GM in NS 250 ML IV SCH (08:59)
[2018-10-19] MEDS: NS NEB INH SCH (09:22)
[2018-10-19] MEDS: NORCO-10 PO PRN ×3 (10:10→21:52)
--- NOTE | 2018-10-19 14:52 | PROGRESS NOTE ---
DATE: 10/19/2018 SUBJECTIVE: The patient is sitting on the commode. She states that she still feels swollen in her feet and complains of some mild abdominal pain. OBJECTIVE: Vital Signs: Temperature 97.4 degrees, blood pressure 129/66, heart rate 93, respirations 17, O2 saturation 93% on room air. General: This is a overweight female sitting on the commode in no acute distress. Heart: S1, S2 normal. Regular rate and rhythm. Lungs: Equal air entry bilaterally. No wheezing. No rales. No rhonchi. Abdomen: Positive bowel sounds. Soft, nontender, nondistended. Extremities: Trace pedal edema. No cyanosis. No calf tenderness. Neurologic: The patient is alert and oriented x4. LABORATORY DATA: White blood cell count 6.9, hemoglobin 9.9, hematocrit 30, platelets 155,000. Sodium 142, potassium 3.1, chloride 101, CO2 30, BUN 8, creatinine 0.5, glucose 139. CK 1581. Albumin 2.5. Chest x-ray shows improved atelectasis. ASSESSMENT AND PLAN: 1. Chronic hypercapnic respiratory failure. Aware. 2. Volume overload. Improved. 3. Fatty liver disease. Aware. 4. Rhabdomyolysis. Improved. 5. Diabetes mellitus type 2. Continue on sliding scale insulin. 6. Hypertension. We will switch the patient to Coreg. 7. B12 deficiency. Continue B12 replacement. 8. Folate deficiency. Continue with folic acid replacement. 9. Status post open thrombectomy of the left limb of the aortobifemoral graft with thrombectomy of both femoral arteries. Management as per the surgeon. 10. Deep vein thrombosis prophylaxis. Continue on Eliquis. 11. Continue with physical therapy. cc: Telma Corona MD [facility]
[2018-10-19] MEDS ORDERED: LASIX IV ONE (15:50)
--- NOTE | 2018-10-19 17:29 | GENERAL SURGERY PROGRESS NOTE ---
DATE: 10/19/2018 She is now week after aortobifemoral bypass. She is doing much better. She is afebrile. Heart rate is 93. Blood pressure 129/66. She has good peripheral perfusion. Her wounds were okay. White count is normal. Hemoglobin 9.9, hematocrit 30. BUN 8, creatinine 0.5. Her CPK is down to 1581. Her chest x-ray is improved. PLAN: The plan will be to discharge her home tomorrow the . cc: MD Telma Bustos MD
[2018-10-19] MEDS: ZOCOR PO SCH (20:38)
[2018-10-19] MEDS: GLUCOPHAGE PO SCH (20:38)
[2018-10-19] MEDS: ELAVIL PO SCH (20:38)
--- NOTE | 2018-10-19 22:22 | PULMONOLOGY PROGRESS NOTE ---
DATE: 10/19/2018 SUBJECTIVE: The patient reports she is feeling better. She did ambulate in the hallway. She continues to have some tingling sensation and some leg edema but not as severe as yesterday. OBJECTIVE: Vital signs: The patient is afebrile. Blood pressure 147/70, heart rate 102, respiratory rate 16, oxygen saturation 94%. HEENT: Pupils are equal and reactive. Oropharynx appears clear. Neck: Supple. Chest: Reveals good air entry bilaterally without wheezing or rhonchi. Cardiac Exam: S1, S2. Abdomen: Obese and soft. Extremities: Reveal 1+ peripheral edema. LABORATORY DATA: Sodium 142, potassium 3.1, chloride 101, bicarbonate 30, BUN 8, creatinine 0.5. CPK is down to 1581. Chest x-ray reveals continued improvement in the lingula and the right lower lobe with minimal residual changes present. IMPRESSION: 1. A 53-year-old with acute hypoxemic respiratory failure. 2. Elevation of the right hemidiaphragm. 3. Rhabdomyolysis with continued decrease in creatine kinase. 4. History of tobacco use. 5. History of witnessed snoring. RECOMMENDATIONS: 1. Continue bronchial hygiene. 2. Discontinue oxygen. She now has saturations that are adequate on room air. 3. Continue physical therapy. 4. Recommend smoking cessation, sleep evaluation, and possible screening CT scan of the thorax after discharge. 5. No additional recommendations. From a pulmonary standpoint, she can be discharged home. cc: MD Telma Martino MD
[2018-10-20] MEDS: HUMULIN R SUBQ SCH ×3 (00:13→09:27)
[2018-10-20] MEDS: XOPENEX NEB INH SCH ×2 (03:48→09:30)
[2018-10-20] MEDS: PRILOSEC PO SCH ×2 (05:29→05:59)
[2018-10-20] MEDS: NORCO-10 PO PRN (06:07)
[2018-10-20 07:02] VITALS: BP 133/69
[2018-10-20 08:38] LABS: AGAP 12; ALB/GLOB RATIO 0.7; ALBUMIN 2.4 g/dL (3.5-5.0); ALKALINE PHOSPHATASE 77 U/L (32-104); BUN 10 mg/dL (8-22); CALCIUM 8.8 mg/dL (8.8-10.2); CHLORIDE 102 mmol/L (98-107); COSMO 280; CREATININE 0.5 mg/dL (0.5-0.9); ESTIMATED GFR > 60; GLUCOSE 154 mg/dL (70-104); GOT 56 U/L (10-30); GPT 65 U/L (10-36); PHOSPHORUS 3.4 mg/dL (2.7-4.5); POTASSIUM 4.1 mmol/L (3.5-5.1); SODIUM 139 mmol/L (136-145); TCO2 25 mmol/L (25-35); TOTAL BILIRUBIN 0.75 mg/dL (0.20-1.00); TOTAL PROTEIN 5.9 g/dL (6.3-8.3)
--- NOTE | 2018-10-20 08:58 | GENERAL SURGERY PROGRESS NOTE ---
DATE: 10/20/2018 SUBJECTIVE: She is now 8 days after aortobifem, 7 days after thrombectomy. She is afebrile. Heart rate 85, blood pressure 133/69. Her oxygen saturation is 95% on room air. She is eating. She has a little bit of abdominal discomfort. Her bowels have moved. Her feet are warm. She has a little bit of edema peripherally. She is ready for discharge. She is to return to see me in the office in a week. We discussed her wound care. She can get in the shower and allow her wounds to get wet. She is to resume her usual medications. I have added Eliquis to her regimen twice a day. She is to use omeprazole or Prilosec at home for her abdominal complaints. She will return to see me in the office in a week for staple removal. She is to use a stool softener with her narcotic. cc: MD Kishan Bustos MD
[2018-10-20] MEDS: LYRICA PO SCH (09:28)
[2018-10-20] MEDS: FOLIC ACID PO SCH (09:28)
[2018-10-20] MEDS: JANUVIA PO SCH (09:28)
[2018-10-20] MEDS: TRADJENTA PO SCH (09:28)
[2018-10-20] MEDS: GLUCOTROL PO SCH (09:28)
[2018-10-20] MEDS: VITAMIN B-12 PO SCH (09:28)
[2018-10-20] MEDS: COREG PO SCH (09:28)
[2018-10-20] MEDS: HYDROCHLOROTHIAZIDE PO SCH (09:29)
[2018-10-20] MEDS: ELIQUIS PO SCH (09:29)
--- NOTE | 2018-10-20 11:30 | PROGRESS NOTE ---
DATE: 10/20/2018 SUBJECTIVE: This morning, Ms. Bay refers to be doing okay. She has actually been discharged by the surgery team. She denies any complaints. OBJECTIVE: Her vitals are stable with a blood pressure 133/69, pulse of 85, respirations 15, temperature 98.1 degrees. The patient's physical exam is fairly unchanged. Chest is clear to auscultation. Normal heart sounds. Abdomen is soft. Minimal edema in the lower extremity, especially on the left. ASSESSMENT: 1. Status post open thrombectomy of left limb aortobifemoral graft. 2. Thrombectomy of both femoral arteries. 3. Mild volume overload resolved. 4. Diabetes mellitus controlled. 5. Hypertension controlled. PLAN: The patient is clinically stable. We agree that she can be discharged. Please refer to the details of the discharge instructions and discharge summary dictated by the surgery team. cc: Kishan Malave MD
--- NOTE | 2018-10-21 14:49 | DISCHARGE SUMMARY ---
ADMISSION DATE: 10/12/2018 DISCHARGE DATE: 10/20/2018 PRIMARY DISCHARGE DIAGNOSES: 1. Occluded aorta. 2. Chronic obstructive pulmonary disease. 3. Non suspended diabetes. 4. 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 5. Morbid obesity. 6. Heparin-induced thrombocytopenia. PRIMARY PROCEDURE: 1. Aortobifemoral bypass done on 10/12/2018. 2. Thrombectomy in the left limb of the aortobifemoral graft, thrombectomy of both femoral arteries on 10/13/2018. CONSULTATION: Consultation was accomplished with the hospitalist group as well as Dr. Ibrahim and hematology/oncology. HISTORY: This is a 53-year-old sent to me by Dr. Jansen due to her aortic occlusion and claudication. She is a smoker. She was admitted and underwent the aortobifemoral bypass on 10/12. Postoperatively, she was noted to have an elevation of her CPK with pain in her legs. She also had some elevated glucoses and acidosis. Hospitalist group was as consulted to assist with control of her diabetes. On the 10/13 she was taken to the operating room and underwent a thrombectomy of the left limb of the graft and the femoral arteries. A CT scan done during the night had shown thrombosis of the left limb of the graft. Following the thrombectomy her acidosis significantly improved. Her CPKs which went above 20,000 began falling daily and she had no evidence of compartment syndrome. She was treated with adequate hydration, adequate insulin control and Dr. Ibrahim the echocardiography technologist saw her as well about her COPD and pulmonary status. She was treated with Merrem and vancomycin post thrombectomy by the hospitalist. Her platelet count fell but did not generate any bleeding and was felt to be due to heparin-induced thrombocytopenia. She was maintained on Eliquis postop because of the unknown cause for her thrombosis. She gradually improved after her reintervention with better perfusion of her legs, palpable pedal pulses, improved aeration and progressively improving bowel function. She was transferred out of the unit to a regular room and stayed there for a couple of days. We asked physical therapy to research assistant member in mobilizing her. By 10/20 she was up. Sitting up and ambulating some in the room. Her pedal pulses persisted. Her lungs were clearing. She became adequately air oxygenation on room air. She was eating food and her bowels were moving. It was felt she could be discharged home. We will arrange for home health to assist her and physical therapy to assist with her ambulation. She will resume her usual medications. We have added Eliquis to her regimen in order to maintain graft patency. cc: MD Kishan Bustos MD Hiteshri S. Bhavsar, MD
== END 2018-10-20 12:03 | disposition home health service (06) | DRG 270 ==
LOC: SURHOLD 04:16 → ICU 13:30 → 2N 10-17 15:24
PROVIDERS: ADMIT Internal Medicine; ATTEND Surgery